=== PATIENT | female | born 1995 | race American Indian/Alaskan Native ===

== ENCOUNTER 2016-11-01 10:26 | Emergency (ER) | payer SELFPAY ==
[2016-11-01 11:30] VITALS: BP 131/85
--- NOTE | 2016-11-01 14:59 | Emergency Department Report ---
HPI - General Chief Complaint: Medical Clearance Time Seen by Provider: 11/01/16 14:37 - HPI HPI: 21-year-old female Presents today post choking on a cough Earlier this morning. Patient states that she was at work at the time and a coworker performed the Heimlich on patient which caused coughed up to come up. Patient states her work needs would be medically cleared. Denies fever, chills, nausea, vomiting, chest pain, shortness of breath, abdominal pain. Denies any medical complaints besides persistent cough post recovering from flu. Patient is currently following up with her primary care provider for this. ED Past Medical Hx - Past Medical History Hx Hypertension: Yes Hx Congestive Heart Failure: No Hx Diabetes: Yes (Borderline DM) Hx Deep Vein Thrombosis: No Hx Renal Disease: No Hx Sickle Cell Disease: No Hx Seizures: No Hx Asthma: Yes Hx COPD: No Hx Dementia: Yes (Borderline) Hx HIV: No - Surgical History Additional Surgical History: vaginal delivery - Social History Smoking Status: Current Every Day Smoker Substance Use Type: Alcohol - Medications Home Medications: Home Medications Medication Instructions Recorded Confirmed Last Taken Type Pnv with Ca,No.72/Iron/FA [Pnv 1 tab PO DAILY 08/13/15 08/13/15 08/12/15 09:00 History Plus Multivit Tab] 1 Promethazine /Codeine 5 ml PO Q6H PRN #100 ml 11/01/16 Unknown Rx [Phenergan/Codeine 6.25-10 mg/5 ml] ED Review of Systems ROS: Stated complaint: CHOKING/CP Other details as noted in HPI Constitutional: denies: chills, fever, malaise Eyes: denies: eye pain ENT: denies: ear pain, throat pain, congestion Respiratory: cough. denies: shortness of breath, wheezing Cardiovascular: denies: chest pain, palpitations Endocrine: no symptoms reported Gastrointestinal: denies: abdominal pain, nausea, vomiting Neurological: denies: headache, weakness Physical Exam - Physical Exam Vital Signs: Vital Signs 11/01/16 11:23 Temperature 98.4 F Pulse Rate 86 Respiratory 18 Rate Blood Pressure 131/85 O2 Sat by Pulse 100 Oximetry Physical Exam: GENERAL: The patient is well-developed and well-nourished. Patient is in NAD. HEAD: Normocephalic. Atraumatic. EYES: PERRL. NOSE: Normal nasal mucosa with no nasal discharge. THROAT: No erythema, swelling or exudates. NECK: Supple, nontender, without lymphadenopathy. CHEST/LUNGS: Clear to auscultation throughout. HEART/CARDIOVASCULAR: Regular rate and rhythm. No murmurs, rubs or gallops. ABDOMEN: Abdomen is soft, nontender. Bowel sounds normoactive. No guarding or rebound tenderness. EXTREMITIES: Peripheral pulses intact. Capillary refill less than 2 seconds. NEURO: Alert and oriented x 3. Normal gait. ED Course Vital Signs 11/01/16 11:23 Temperature 98.4 F Pulse Rate 86 Respiratory 18 Rate Blood Pressure 131/85 O2 Sat by Pulse 100 Oximetry ED Medical Decision Making - Lab Data Vital Signs 11/01/16 11:23 Temperature 98.4 F Pulse Rate 86 Respiratory 18 Rate Blood Pressure 131/85 O2 Sat by Pulse 100 Oximetry - Medical Decision Making 21-year-old female presents to the tibia medically cleared post choking on a cough drop. She has no medical complaints and her physical exam is unremarkable. Patient is in no acute distress at this time. She will be discharged home and is encouraged to follow up with a primary care provider. She will be sent home on promethazine/codeine and is encouraged to return to the emergency room for any worsening symptoms. Critical care attestation.: If time is entered above; I have spent that time in minutes in the direct care of this critically ill patient, excluding procedure time. ED Disposition Clinical Impression: Cough Disposition: DISCHARGED TO HOME OR SELFCARE Is pt being admited?: No Does the pt Need Aspirin: No Condition: Stable Instructions: Acute Cough (ED) Additional Instructions: Follow with primary care provider. Return to the emergency department if symptoms worsen. Prescriptions: Promethazine /Codeine [Phenergan/Codeine 6.25-10 mg/5 ml] 5 ml PO Q6H PRN #100 ml PRN Reason: cough Referrals: PRIMARY CARE, [Primary Care Provider] - 3-5 Days [facility] [Outside] - 3-5 Days Forms: Work/School Release Form(ED) Time of Disposition: 15:07
== END 2016-11-01 15:21 | disposition home or self-care (01) ==
LOC: ED 10:26
DX: R05 Cough (principal); I10 Essential (primary) hypertension; E11.9 Type 2 diabetes mellitus without complications; J45.909 Unspecified asthma, uncomplicated; F17.200 Nicotine dependence, unspecified, uncomplicated
CPT/HCPCS: 99282

== ENCOUNTER 2018-09-02 05:08 | Inpatient (IN) | payer MEDICAID ==
[2018-09-02] MEDS ORDERED: LACTATED RINGERS 1,000 ML ONE (07:04)
[2018-09-02] MEDS ORDERED: PFIZERPEN 5 MIL.UNITS in NACL 0.9% 50 ML IV ONE (07:35)
[2018-09-02] MEDS ORDERED: BRETHINE SUB-Q PRN (07:35)
[2018-09-02 07:50] LABS: Basophils % (Auto) 0.4 % (0.0-1.8); Eosinophils # (Auto) 0.1 K/mm3 (0.0-0.4); Eosinophils % (Auto) 0.6 % (0.0-4.3); Hematocrit 33.1 % (30.3-42.9); Hemoglobin 11.2 gm/dl (10.1-14.3); Lymphocytes # (Auto) 2.3 K/mm3 (1.2-5.4); Lymphocytes % (Auto) 22.3 % (13.4-35.0); Mean Corpuscular HGB Conc 34 % (30-34); Mean Corpuscular Volume 85 fl (79-97); Monocytes # (Auto) 1.1 K/mm3 (0.0-0.8); Monocytes % (Auto) 10.7 % (0.0-7.3); Platelet Count 227 K/mm3 (140-440); Red Blood Count 3.89 M/mm3 (3.65-5.03)
[2018-09-02] MEDS ORDERED: LACTATED RINGERS 1,000 ML IV SCH ×2 (08:00→12:00)
[2018-09-02] MEDS ORDERED: PITOCin/NS 20 UNIT/1000ML DRIP 20 UNITS/1,000 ML BAG IV SCH ×3 (08:00→15:00)
[2018-09-02 08:54] LABS: Alanine Aminotransferase 8 units/L (7-56); Albumin 3.7 g/dL (3.9-5); BUN/Creatinine Ratio 18; Blood Urea Nitrogen 7 mg/dL (7-17); Calcium 9.9 mg/dL (8.4-10.2); Hemolysis Index 34
[2018-09-02] MEDS: LACTATED RINGERS 1,000 ML IV SCH ×2 (09:00→18:36)
--- NOTE | 2018-09-02 09:03 | History and Physical Report ---
History of Present Illness Date of examination: 09/02/18 Date of admission: 09/02/18 07:55 Chief complaint: 23 year old presents to labor and delivery with complaint of contractions. History of present illness: 23 year old presents to L&D complaining of contractions since around 4:00 am today. Patient denies LOF or VB. Pt. reports active movement. Patient states she has been receiving care at [facility] and has also been seeing [facility]. No records are available here at the hospital today. records have been requested. US has been ordered to confirm gestational age. Patient states she has IDDM; she states she has had diabetes since childhood but has only been taking insulin for about the past year. Patient also has obesity and she reports a history of PCOS. Patient states that, other than obesity and diabetes requiring insulin, she has not had any complications during this . She states she had a normal vaginal 3 years ago. I was notified that patient was here at 07:08 AM; at that time, frequent brief variable FHR decelerations and a few late FHR decelerations were noted; normal FHR baseline and moderate variability were noted. IV hydration was given and patient was positioned in lateral position; FHR decelerations resolved. US and BPP with velocimetry was ordered. Past History Past Medical History: diabetes (IDDM), other (obesity) Past Surgical History: no surgical history [facility] History: herpes (on Valtrex suppression but patient admits to not taking the medication regularly; reports stinging and tingling feeling in genital area; lesion seen at introitus; herpes culture done; MD notified), other (PCOS) Family/Genetic History: diabetes, heart disease, hypertension Social history: single, lives with family, full code. denies: smoking, alcohol abuse, prescription drug abuse, IV drug use - Obstetrical History Expected Date of Delivery: 09/22/18 (per patient report; records have been requested) Actual Gestation: 37 Week(s) 1 Day(s) : 2 Medications and Allergies Allergies Allergy/AdvReac Type Severity Reaction Status Date / Time latex Allergy Rash Verified 09/02/18 05:40 Home Medications Medication Instructions Recorded Confirmed Last Taken Type NovoLOG Mix 70-30 Flexpen 15 units SQ BID 09/02/18 09/02/18 09/01/18 20:00 History valACYclovir [Valtrex] 1,000 mg PO DAILY 09/02/18 09/02/18 08/31/18 History Active Meds: Active Medications Ephedrine Sulfate (Ephedrine Sulfate) 10 mg IV Q2M PRN PRN Reason: Hypotension Lactated Ringer's (Lactated Ringers) 1,000 mls @ 125 mls/hr IV DIRECT DARIEN Oxytocin/Sodium Chloride (Pitocin/Ns 20 Unit/1000ml Drip) 20 units in 1,000 mls @ 125 mls/hr IV DIRECT DARIEN Penicillin G Potassium 2.5 mil (.units/ Sodium Chloride) 50 mls @ 100 mls/hr IV Q4HR DARIEN; Protocol Terbutaline Sulfate (Brethine) 0.25 mg SUB-Q ONCE PRN PRN Reason: Hyperstimulation/Hypertonicity Review of Systems All systems: negative (possible herpes outbreak of vulva/vagina; contractions since 04:00 today) - Vital Signs Vital signs: Vital Signs Temp Pulse Resp BP Pulse Ox 98.7 F 91 H 18 123/70 98 09/02/18 05:25 09/02/18 05:25 09/02/18 05:25 09/02/18 05:25 09/02/18 05:25 Temp Pulse Resp BP Pulse Ox 98.7 F 70 18 119/74 100 09/02/18 05:25 09/02/18 07:49 09/02/18 05:25 09/02/18 06:50 09/02/18 07:49 - Physical Exam Abdomen: Positive: normal appearance, soft. Negative: distention, tenderness, guarding, rigidity Genitourinary (Female): Positive: perineal/vulvar lesions (small linear lesion right side of introitus; tender to palpation; herpes virus culture done) Vagina: Positive: normal moisture (no leaking of fluid seen) Uterus: Positive: enlarged. Negative: tender Extremities: Positive: normal, edema (mild pedal edema). Negative: tenderness - Obstetrical FHR: category 2 (FHR with occasional brief variable deceleration; pt. had a few late appearing decelerations upon admission which have resolved) Uterine Contraction Monitor Mode: External Cervical Dilatation: 3.5 Cervical Effacement Percentage: 50 station: -3 Uterine Contraction Pattern: Irregular Uterine Contraction Intensity: Moderate Results Result Diagrams: 09/02/18 07:30 09/02/18 08:40 Abnormal lab results 09/02/18 09/02/18 09/02/18 Range/Units 05:51 07:30 08:40 [place] % (Auto) 10.7 H (0.0-7.3) % [place] # 1.1 H (0.0-0.8) K/mm3 Sodium 136 L (137-145) mmol/L Carbon Dioxide 20 L (22-30) mmol/L Creatinine 0.4 L (0.7-1.2) mg/dL Glucose 113 H (65-100) mg/dL POC Glucose 117 H (70-105) Alkaline Phosphatase 135 H (35-129) units/L Albumin 3.7 L (3.9-5) g/dL All other labs normal. Assessment and Plan A: at 37 weeks, 1 day gestation. No records available (records have been requested). Insulin dependent diabetes. Obesity. GBS positive per patient report. HSV 2 positive, noncompliant with Valtrex suppression, possible genital herpes outbreak. heart rate decelerations, not recurrent. P: Admit. Obtain records ( records have been requested). GBS prophylaxis. NPO. Continuous EFM. Herpes culture (done). IV hydration. Ultrasound. Blood glucose, hemoglobin A1C, CBC, CMP, type and screen. Per Dr. Camp's request, [facility] consult. Consulted with Dr. Camp regarding this patient and the above patient complaints and findings. Dr. Camp states to keep patient NPO, get [facility] consult, and she will come and see the patient. Called [facility] and informed them that Dr. Camp requests a consult.
[2018-09-02] MEDS ORDERED: VALTREX PO SCH ×2 (10:00)
--- NOTE | 2018-09-02 10:03 | Ultrasound Report ---
FINAL REPORT EXAM: US OB FOLLOW UP HISTORY: gestational age, zulay, placenta TECHNIQUE: Obstetrical ultrasound was performed. PRIORS: None. FINDINGS: position is cephalic. Placental location is posterior. Negative for placenta previa. Negative for placental abruption. Amniotic fluid volume is normal. The amniotic fluid index is 15.6 cm. cardiac activity is identified, measured at 149 beats per minute. Measurements: BPD: 8.6 cm-34 weeks 4 days +/-22 days HC: 32.7 cm-37 weeks 1 day +/-19 days AC: 33.3 cm-37 weeks 1 day +/-21 days FL: 6.97 cm-35 weeks 5 days +/-21 days HC/AC: 0.98 (0.92-1.05) Avg age by US: 36 weeks 1 day with corresponding ISABEL of 09/29/2018. Clinical age is 37 weeks 1 day with ISABEL of 09/22/2018. EFW: 2964 g +/-439 g. This is 40th percentile for clinical age of 37 weeks 1 day. Survey of anatomy: Not performed. IMPRESSION: There is a single live intrauterine just station. Clinical age is 37 weeks 1 day with ISABEL of 09/22/2018 . Growth is appropriate with estimated weight corresponding to the 40th percentile. Specifics a s above. Amniotic fluid volume normal with ZULAY of 15.6 cm. Posterior placenta without evidence of abruption or placenta previa.
--- NOTE | 2018-09-02 10:04 | Ultrasound Report ---
FINAL REPORT EXAM: US OB BPP WO NON-STRESS HISTORY: BPP TECHNIQUE: Sonographic biophysical profile performed PRIORS: None. FINDINGS: There is a single live intrauterine of approximately 37 weeks 1 day according to the provid ed LMP of 12/16/2018 and ISABEL of 09/22/2018. position is cephalic. The placenta is posterior. Amniotic fluid volume is normal with ZULAY of 15.6 cm. cardiac activity is measured at 149 bpm. biophysical profile: breathing movements: 2 Gross body movements: 2 tone: 2 Amniotic fluid volume: 2 Score: 8 out of 8. IMPRESSION: Normal biophysical profile scoring 8 out of 8
--- NOTE | 2018-09-02 10:22 | Event Note ---
Date: 09/02/18 records have been received now. The following noted on records: . LMP: 10/24/2017. EDC 09/22/2018 (based on first trimester ultrasound). History of GBS bacteriuria during . HSV 2 positive, was prescribed Valtrex during . Elevated AFP (+ OSB); patient was referred to [facility] during . Trichomonas (treated with Flagyl); test of cure done but no result on chart. Anemia; iron supplementation was prescribed during . labs: O+, antibody screen negative, pap smear negative, rubella immune, RPR nonreactive, hepatitis B surface antigen negative, HIV negative, HSV 2 positive, hemoglobin electrophoresis AA, GC negative, CT negative, GBS positive.
[2018-09-02] MEDS ORDERED: PFIZERPEN 2.5 MIL.UNITS in NACL 0.9% 50 ML IV SCH (11:30)
[2018-09-02] MEDS ORDERED: ANCEF/STERILE WATER 2 GM/20 ML 2 GM/20 ML SYRINGE IV NR ×2 (11:30→12:00)
[2018-09-02] MEDS ORDERED: REGLAN IV ONE (11:30)
--- NOTE | 2018-09-02 11:34 | Anesthesia Consultation ---
Anesthesia Consult and Med Hx Date of service: 09/02/18 (c section) - Airway Anesthetic Teeth Evaluation: Good ROM Head & Neck: Adequate Mental/Hyoid Distance: Adequate Mallampati Class: Class II Intubation Access Assessment: Good - Pulmonary Exam CTA: Yes - Cardiac Exam Cardiac Exam: RRR - Pre-Operative Health Status ASA Pre-Surgery Classification: ASA2, Emergency Proposed Anesthetic Plan: Spinal - Pre-Anesthesia Comment Pre-Anesthesia Comments: hx of type 1 DM BS 113 - Pulmonary Hx Smoking: No Hx Asthma: No COPD: No Hx Pneumonia: No - Cardiovascular System Hx Hypertension: No - Central Nervous System Hx Seizures: No Hx Psychiatric Problems: Yes ( depression) - Endocrine Hx Renal Disease: No Hx End Stage Renal Disease: No Hx Insulin Dependent Diabetes: Yes Hx Hypothyroidism: No Hx Hyperthyroidism: No - Hematic Hx Anemia: No Hx Sickle Cell Disease: No - Other Systems Hx Alcohol Use: No - Additional Comments Anesthesia Medical History Comments: consent for spinal and QLs for post op pain control labs reviewed
[2018-09-02] MEDS ORDERED: PHENERGAN PO PRN (11:35)
[2018-09-02] MEDS ORDERED: ZOFRAN IV PRN (11:35)
[2018-09-02] MEDS ORDERED: NARCAN 0.4 MG/1 ML IV PRN (11:35)
[2018-09-02] MEDS ORDERED: PHENERGAN PR PRN (11:35)
--- NOTE | 2018-09-02 11:35 | Anesthesia Day of Surgery ---
Anesthesia Day of Surgery - Day of Surgery Patient Examined: Yes Patient H&P Reviewed: Yes Patient is NPO: Yes Beta Blockers: No Cardiac Clearance: No Pulmonary Clearance: No Mian's Test: N/A (emergency section)
--- NOTE | 2018-09-02 11:45 | Progress Note ---
Subjective Date of service: 09/02/18 Principal diagnosis: DM, Labor HSV2 Interval history: the patietn is presents at 37 weeks 1 day with labor latent, decels non recurrent, DM2 on insulin and HSV2 outbreak per report from primary OB RN. I heladio went to see the patient as she is being prepared to have CS, I would also rec CS for the patient at this time as there is concern for maternal well being. Please treat HSV outbreaka nd and make peds aware of active outbreaj, Valtrex 1000 BID for 7-10 days. should not contact the HSV, please call peds. After she is delivered would 1/2 insulin dose and monitor response per standard protocol for DM2 patients. If there are any concerns please call myself, we will sign off on patient. Objective - Constitutional Vitals: Vital Signs - 12hr 09/02/18 09/02/18 09/02/18 05:25 05:31 05:32 Temperature 98.7 F Pulse Rate 91 H 86 Respiratory 18 Rate Blood Pressure 123/70 Blood Pressure 123/70 [Left] O2 Sat by Pulse 98 97 Oximetry 09/02/18 09/02/18 09/02/18 05:36 05:41 05:46 Temperature Pulse Rate 91 H 84 92 H Respiratory Rate Blood Pressure Blood Pressure [Left] O2 Sat by Pulse 98 97 99 Oximetry 09/02/18 09/02/18 09/02/18 05:50 05:51 05:56 Temperature Pulse Rate 82 79 85 Respiratory Rate Blood Pressure 117/73 Blood Pressure [Left] O2 Sat by Pulse 99 97 Oximetry 09/02/18 09/02/18 09/02/18 06:01 06:05 06:06 Temperature Pulse Rate 84 77 80 Respiratory Rate Blood Pressure 117/80 Blood Pressure [Left] O2 Sat by Pulse 100 100 Oximetry 09/02/18 09/02/18 09/02/18 06:11 06:16 06:19 Temperature Pulse Rate 73 75 71 Respiratory Rate Blood Pressure 117/79 Blood Pressure [Left] O2 Sat by Pulse 99 99 Oximetry 09/02/18 09/02/18 09/02/18 06:21 06:26 06:31 Temperature Pulse Rate 71 77 66 Respiratory Rate Blood Pressure Blood Pressure [Left] O2 Sat by Pulse 98 98 98 Oximetry 09/02/18 09/02/18 09/02/18 06:36 06:41 06:46 Temperature Pulse Rate 76 73 78 Respiratory Rate Blood Pressure Blood Pressure [Left] O2 Sat by Pulse 98 99 98 Oximetry 09/02/18 09/02/18 09/02/18 06:50 06:51 06:56 Temperature Pulse Rate 76 69 Respiratory Rate Blood Pressure 119/74 Blood Pressure [Left] O2 Sat by Pulse 100 98 Oximetry 09/02/18 09/02/18 09/02/18 07:01 07:06 07:11 Temperature Pulse Rate 70 77 82 Respiratory Rate Blood Pressure Blood Pressure [Left] O2 Sat by Pulse 98 98 98 Oximetry 09/02/18 09/02/18 09/02/18 07:16 07:18 07:29 Temperature Pulse Rate 90 82 67 Respiratory Rate Blood Pressure Blood Pressure [Left] O2 Sat by Pulse 99 87 99 Oximetry 09/02/18 09/02/18 09/02/18 07:34 07:39 07:44 Temperature Pulse Rate 68 85 86 Respiratory Rate Blood Pressure Blood Pressure [Left] O2 Sat by Pulse 99 100 99 Oximetry 09/02/18 09/02/18 09/02/18 07:49 09:43 09:44 Temperature Pulse Rate 70 79 81 Respiratory Rate Blood Pressure 112/73 Blood Pressure [Left] O2 Sat by Pulse 100 99 Oximetry 09/02/18 09/02/18 10:12 10:17 Temperature 97.2 F L Pulse Rate 74 78 Respiratory 16 Rate Blood Pressure 111/56 Blood Pressure 111/56 [Left] O2 Sat by Pulse 99 Oximetry - Labs CBC & Chem 7: 09/02/18 07:30 09/02/18 08:40 Labs: Abnormal lab results 09/02/18 09/02/18 09/02/18 Range/Units 05:51 07:30 08:40 [place] % (Auto) 10.7 H (0.0-7.3) % [place] # 1.1 H (0.0-0.8) K/mm3 Sodium (137-145) mmol/L Carbon Dioxide (22-30) mmol/L Creatinine (0.7-1.2) mg/dL Glucose (65-100) mg/dL POC Glucose 117 H (70-105) Hemoglobin A1c 8.0 H (4-6) % Alkaline Phosphatase (35-129) units/L Albumin (3.9-5) g/dL 09/02/18 Range/Units 08:40 [place] % (Auto) (0.0-7.3) % [place] # (0.0-0.8) K/mm3 Sodium 136 L (137-145) mmol/L Carbon Dioxide 20 L (22-30) mmol/L Creatinine 0.4 L (0.7-1.2) mg/dL Glucose 113 H (65-100) mg/dL POC Glucose (70-105) Hemoglobin A1c (4-6) % Alkaline Phosphatase 135 H (35-129) units/L Albumin 3.7 L (3.9-5) g/dL Medications & Allergies - Medications Allergies/Adverse Reactions: Allergies latex Allergy (Verified 09/02/18 05:40) Rash Home Medications: Home Medications Medication Instructions Recorded Confirmed Last Taken Type NovoLOG Mix 70-30 Flexpen 15 units SQ BID 09/02/18 09/02/18 09/01/18 20:00 History valACYclovir [Valtrex] 1,000 mg PO DAILY 09/02/18 09/02/18 08/31/18 History Active Medications: Generic Name Dose Route Start Last Admin Trade Name Freq PRN Reason Stop Dose Admin Citric Acid/Sodium Citrate 30 ml 09/02/18 12:00 Bicitra PO 09/02/18 12:01 ONCE ONE Ephedrine Sulfate 10 mg 09/02/18 07:35 Ephedrine Sulfate IV Q2M PRN Hypotension Famotidine 20 mg 09/02/18 12:00 Pepcid IV 09/02/18 12:01 ONCE ONE Lactated Ringer's 1,000 mls @ 125 mls/hr 09/02/18 08:00 09/02/18 09:00 Lactated Ringers IV 125 mls/hr DIRECT DARIEN Administration Oxytocin/Sodium Chloride 20 units in 1,000 mls @ 125 mls/hr 09/02/18 08:00 Pitocin/Ns 20 Unit/1000ml Drip IV DIRECT DARIEN Penicillin G Potassium 2.5 mil 50 mls @ 100 mls/hr 09/02/18 11:30 .units/ Sodium Chloride IV Q4HR DARIEN Protocol Lactated Ringer's 1,000 mls @ 2,250 mls/hr 09/02/18 12:00 Lactated Ringers IV 09/03/18 12:27 PREOP DARIEN Oxytocin/Sodium Chloride 20 units in 1,000 mls @ 0 mls/hr 09/02/18 12:00 Pitocin/Ns 20 Unit/1000ml Drip IV TITR DARIEN As Directed Cefazolin Sodium 2 gm in 20 mls @ 80 mls/hr 09/02/18 11:30 Ancef/Sterile Water 2 Gm/20 Ml IV 09/02/18 23:59 PREOP NR Protocol Fentanyl/Bupivacaine/Sodium Chlor 200 mcg in 100 mls @ 8 mls/hr 09/02/18 12:00 Fentanyl-Bupiv 2 Mcg/Ml-0.125% EPIDURAL TITRATE [facility] Protocol Naloxone HCl 0.2 mg 09/02/18 11:35 Narcan 0.4 Mg/1 Ml IV Q2MIN PRN Res Rate </= 8 or 02 SAT < 92% Ondansetron HCl 4 mg 09/02/18 11:35 Zofran IV Q8H PRN Nausea And Vomiting Promethazine HCl 25 mg 09/02/18 11:35 Phenergan PO Q6H PRN Nausea And Vomiting Promethazine HCl 25 mg 09/02/18 11:35 Phenergan [place] Q6H PRN Nausea And Vomiting Sodium Chloride 10 ml 09/02/18 12:00 Sodium Chloride Flush Syringe 10 Ml IV PRN NR Terbutaline Sulfate 0.25 mg 09/02/18 07:35 Brethine SUB-Q ONCE PRN Hyperstimulation/Hypertonicity Valacyclovir HCl 1,000 mg 09/02/18 10:00 Valtrex PO QDAY [facility]
[2018-09-02] MEDS ORDERED: PEPCID IV ONE (12:00)
[2018-09-02] MEDS ORDERED: BICITRA PO ONE (12:00)
[2018-09-02] MEDS ORDERED: fentaNYL-BUPIV 2 MCG/ML-0.125% 200 MCG/100 ML BAG EPIDURAL SCH (12:00)
[2018-09-02] MEDS ORDERED: SODIUM CHLORIDE FLUSH SYRINGE 10 ML IV NR (12:00)
[2018-09-02] MEDS ORDERED: WATER FOR IRRIG STERILE IR ONE (12:20)
[2018-09-02] MEDS ORDERED: NACL 0.9% IR ONE (12:20)
[2018-09-02] MEDS ORDERED: MARCAINE 0.5% INFILTRATI ONE (14:00)
[2018-09-02] MEDS ORDERED: DECADRON ONE (14:00)
[2018-09-02] MEDS ORDERED: D50W (25GM) Syringe IV PRN (14:13)
[2018-09-02] MEDS ORDERED: MYLICON PO PRN (14:20)
[2018-09-02] MEDS ORDERED: MILK OF MAGNESIA PO PRN (14:20)
[2018-09-02] MEDS ORDERED: TUCKS PAD TP PRN (14:20)
[2018-09-02] MEDS ORDERED: LANSINOH TP PRN (14:20)
--- NOTE | 2018-09-02 14:41 | Operative Report ---
Operative Report Operative Report: PREOP Diagnosis 1. 37 1/7 weeks gestation 2. Uncontrolled Insulin-Dependent Diabetes Mellitus Type I 3. Category II heart tracings 4. Non-compliance with care 5. Active HSV2 genital outbreak Postop Diagnosis 1. 37 1/7 weeks gestation 2. Uncontrolled Insulin-Dependent Diabetes Mellitus Type I 3. Category II heart tracings 4. Non-compliance with care 5. Active HSV2 genital outbreak Procedure: Primary low-transverse section Findings 1. Viable female infant in the vertex position, weighing 6lb 7oz, 2934g APGARS 8 at 1 min, 9 at 5 min 2. Normal uterus, bilateral ovaries and tubes Surgeon 1. Melissa Camp MD Anesthesia: 1. Epidural I/O: EBL: 400ml UOP: 10ml, clear urine IVF 1100ml LR Specimens removed: 1. Placenta Complications: none Disposition: Patient taken to recovery room in stable condition INDICATIONS: The patient is a 23yo at 37 1/7weeks that presented to L&D complaining of contractions. She was found to have Category II heart tracings. After physical exam a vulvar lesion suspicious of HSV2 was noted. She admitted to being non-compliant on her HSV2 suppression medications and admits to frequent and recent herpes outbreaks. The the decision was made to proceed to delivery due to uncontrolled, non-complaint gestational diabetes with Category II heart tracings. The mode of delivery was due to the active herpes outbreak. The patient was consented and the risks including but not limited to bleeding, infections, injury to surrounding organs, potential injury to mother/ were discussed. All questions were answered and informed consent signed. PROCEDURE: The patient was taken to the OR in stable condition. Adequate anesthesia was achieved with epidural anesthesia. A marley catheter was placed. She wore SCDs for DVT prophylaxis. And received Ancef for infection prophylaxis. heart tones were confirmed at 138bpm. The patient was prepped and draped in the usual fashion and an additional time out was done. A Pfannestiel incision was made with the MegaAce device. The fascia was incised and the incision extended laterally. The superior and inferior aspect of the rectus muscle was dissected off of the fascia. Entry into the peritoneum was achieved. The incision was extended caudally. A bladder blade was placed. A low-transverse incision made made in the uterus and extended laterally. membranes were ruptured and noted to be clear. The head was brought to the hysterotomy and mouth bulb suctioned. The body was delivered. The cord was clamped x 2, cut and infant handed off to awaiting managing attorney staff. The placenta was delivered intact a nd 20 units of IV Pitocin were added to LR fluids. The uterus was exteriorized and cleaned of all clots. The uterus was repaired with 0-Vicryl in a running, locked stitch and an imbricating layer of the same suture was used. Surgicel was placed at the left aspect of the hysterotomy. The peritoneum and rectus was approximated with 2-0 Vicryl. The fascia was closed with 0 Vicryl. The subcutaneous layer was reapproximated with 2-0 Vicryl and skin was closed with 4-0 Vicryl The patient tolerated the procedure well. All counts were correct x 3. Urine was noted to be clear at close of case. I was present and scrubbed for the entire procedure. The patient was taken to the recovery room in stable condition.
--- NOTE | 2018-09-02 14:44 | Ultrasound Report ---
FINAL REPORT PROCEDURE: US OB VELOCIMETRY UMBILCAL ART TECHNIQUE: Pulse Doppler imaging waist utilized to evaluate the umbilical artery. Amniotic fluid ind ex is also calculated. HISTORY: deceleration COMPARISON: None FINDINGS: Amniotic fluid index is normal measuring 15.6 centimeters. Subjectively the amount of amniotic fluid appears normal. The systolic to diastolic ratio is 2.42. Good diastolic flow is visualized. Resistive index is normal measuring 0.59. IMPRESSION: Subjectively and by amniotic fluid index the amount of amniotic fluid appears normal. Doppler evaluation of the umbilical artery appear normal at this time.
[2018-09-02] MEDS ORDERED: SODIUM CHLORIDE FLUSH SYRINGE 10 ML IV SCH (15:00)
[2018-09-02] MEDS: PERCOCET 5/325 PO PRN (18:35)
[2018-09-02 22:50] LABS: Amphetamine Screen,Urine PRESUMPTIVE NEGATIVE; Benzodiazepines Screen,Urine PRESUMPTIVE NEGATIVE; Cannabinoid Screen,Urine PRESUMPTIVE NEGATIVE; Cocaine Screen,Urine PRESUMPTIVE NEGATIVE; Methadone Screen,Urine PRESUMPTIVE NEGATIVE; Opiate Screen,Urine PRESUMPTIVE NEGATIVE
[2018-09-03] MEDS: VALTREX PO SCH ×2 (00:20→20:18)
[2018-09-03] MEDS: HumuLIN R SUB-Q SCH ×2 (00:23→05:45)
[2018-09-03] MEDS: IBUPROFEN PO PRN ×3 (04:48→18:29)
[2018-09-03] MEDS: PERCOCET 5/325 PO PRN ×3 (04:48→18:30)
[2018-09-03 05:34] LABS: Hematocrit 33.2 % (30.3-42.9); Hemoglobin 10.9 gm/dl (10.1-14.3)
[2018-09-03] MEDS: FEOSOL PO SCH (11:05)
--- NOTE | 2018-09-03 12:25 | Progress Note ---
Assessment and Plan A: /postop day 1 S/P primary low transverse section. Anemia. P: Supplement with iron. Encouraged ambulation. Subjective - Subjective Date of service: 09/03/18 Principal diagnosis: /postop day 1 S/P primary low transverse section Interval history: /postop day 1 S/P primary low transverse section. Patient is doing well. She reports a small amount of lochia. Patient is voiding without difficulty and passing gas. She is ambulating well and tolerating a regular diet. Patient denies headache, chest pain, cough, shortness of breath, abdominal pain, leg pain, dizziness, heavy bleeding, or nausea/vomiting. Patient reports: appetite normal, voiding normally, pain well controlled, flatus, ambulating normally, no dizzy ambulation, no nauseated [place]: doing well Objective - Vital Signs Latest vital signs: Vital Signs Temp Pulse Resp BP BP Pulse Ox 09/03/18 07:47 98.1 F 56 L 16 112/71 99 09/03/18 04:56 97.9 F 55 L 18 130/66 09/03/18 01:10 98.1 F 58 L 16 123/66 09/02/18 21:10 98.4 F 80 18 118/58 09/02/18 15:27 97.4 F L 56 L 18 100 09/02/18 14:55 97.8 F 62 14 133/75 100 09/02/18 14:50 64 14 138/65 100 09/02/18 14:35 67 15 123/63 100 09/02/18 14:20 67 15 117/63 100 09/02/18 14:05 57 L 14 111/61 100 09/02/18 14:00 52 L 14 114/65 100 09/02/18 13:55 55 L 14 105/58 100 09/02/18 13:52 97.6 F 53 L 14 101/51 100 Intake and Output 09/02/18 09/03/18 09/03/18 23:59 07:59 15:59 Intake Total 1400 480 360 Output Total 900 2300 Balance 500 -1820 360 Intake: IV 1000 Lactated Ringers 1,000 ml 1000 @ 125 mls/hr IV DIRECT DARIEN Rx#:[id number] Oral 360 Intake, Free Water 400 480 Output: Urine 900 2300 Indwelling Catheter 900 1600 Void 700 Other: Total, Intake Amount 360 Total, Output Amount 900 700 # Voids Void 1 1 - Exam Cardiovascular: Present: Regular rate, Normal S1, Normal S2 Lungs: Present: Clear to auscultation Abdomen: Present: normal appearance, soft, normal bowel sounds. Absent: distention, tenderness, guarding, rigidity Uterus: Present: normal, firm, fundal height below umbilicus. Absent: bogginess, tenderness Extremities: Present: normal. Absent: tenderness, edema Incision: Present: normal, dry, intact, dressed - Labs Labs: Abnormal lab results 09/02/18 09/03/18 09/03/18 Range/Units 18:48 00:21 05:55 POC Glucose 114 H 183 H 134 H (70-105)
[2018-09-04] MEDS: HumuLIN R SUB-Q SCH ×2 (00:01→06:41)
[2018-09-04] MEDS: VALTREX PO SCH ×3 (06:57→22:16)
[2018-09-04] MEDS: IBUPROFEN PO PRN ×3 (06:59→22:17)
[2018-09-04] MEDS: PERCOCET 5/325 PO PRN ×3 (07:00→22:16)
--- NOTE | 2018-09-04 09:38 | Progress Note ---
Assessment and Plan - Patient Problems (1) S/P primary low transverse Current Visit: Yes Status: Acute Plan to address problem: POD 2 - stable Continue routine postop orders Ambulation encouraged, as tolerated Abdominal binder prn ordered Discharge to home 09/05/18 Follow up at [facility] on 09/08/18 to review blood glucose log (2) Insulin dependent diabetes mellitus Current Visit: Yes Status: Acute Plan to address problem: Blood glucose stable (last blood glucose 82) Continue accuchecks/sliding scale insulin, as directed Patient instructed to continue checking her blood sugars at home 4x/d and follow up at [facility] on 09/08/18 to review her blood glucose log and plan of care. Subjective - Subjective Date of service: 09/04/18 Principal diagnosis: POD #2; s/p Primary Low Transverse Section Patient reports: appetite normal, voiding normally, pain well controlled, flatus, ambulating normally, no dizzy ambulation, no bowel movement [place]: doing well, other (breast and bottle feeding) Objective - Vital Signs Latest vital signs: Vital Signs Temp Pulse Resp BP BP Pulse Ox 09/04/18 07:30 98.5 F 63 18 120/73 98 09/04/18 07:00 18 09/04/18 06:59 18 09/03/18 23:34 98.0 F 70 18 106/52 98 09/03/18 15:57 97.3 F L 75 20 118/68 99 09/03/18 12:25 97.8 F 73 16 111/67 99 Intake and Output 09/03/18 09/04/18 09/04/18 23:59 07:59 15:59 Intake Total 200 360 Output Total 500 Balance -300 360 Intake: Oral 200 Intake, Free Water 360 Output: Urine 500 Void 500 Other: Total, Intake Amount 200 Total, Output Amount 500 # Voids Void 2 - Exam Cardiovascular: Present: Regular rate Abdomen: Present: normal appearance, soft Vulva: both: normal Uterus: Present: normal, firm, fundal height below umbilicus Extremities: Present: normal Incision: Present: normal, dry, intact, other (steri strips in place) Comments: scant lochia - Labs Labs: Abnormal lab results 09/03/18 Range/Units 12:28 POC Glucose 106 H (70-105)
[2018-09-04] MEDS: FEOSOL PO SCH (09:46)
--- NOTE | 2018-09-04 09:52 | Discharge Summary ---
Providers - Providers Date of Admission: 09/02/18 07:55 Date of discharge: 09/05/18 Attending physician: SANTA FAJARDO MD 09/02/18 09:42 Consult to Physician [CONS] Stat Comment: Consulting Provider: DAYAMI MORELAND Physician Instructions: Reason For Exam: IDDM Primary care physician: SANTA FAJARDO MD Hospitalization Reason for admission: IUP at term Delivery: Procedure: primary low transverse Episiotomy: none Laceration: none Incision: normal, dry, intact, other (steri strips in place) Other procedures: none complications: none Discharge diagnosis: IUP at term delivered baby: female Hospital course: Uncomplicated Condition at discharge: Stable Disposition: DC-01 TO HOME OR SELFCARE - Discharge Diagnoses (1) S/P primary low transverse Status: Acute (2) Insulin dependent diabetes mellitus Status: Acute Comment: Patient instructed to stop home insulin therapy but continue checking her blood sugars at home 4x/d and follow up at [facility] on 09/08/18 to review her blood glucose log and plan of care. Plan - Discharge Medications Prescriptions: Ferrous Sulfate [Feosol 325 MG tab] 325 mg PO BID 30 Days #60 tablet Ibuprofen 800 mg PO Q6H PRN 10 Days #30 tablet MDD 3200mg PRN Reason: Pain, Moderate (4-6) oxyCODONE /ACETAMINOPHEN [Percocet 5/325] 1 tab PO Q4HR PRN 14 Days #30 tab PRN Reason: Pain , Severe (7-10) - Provider Discharge Summary Activity: routine, no sex for 6 weeks, no heavy lifting 4 weeks, no strenuous exercise Diet: routine Instructions: routine Additional instructions: [] Smoking cessation referral if applicable(refer to patient education folder for contact #) [] Refer to [facility] Booklet Call your doctor immediately for: * Fever > 100.5 * Heavy vaginal bleeding ( >1 pad per hour) * Severe persistent headache * Shortness of breath * Reddened, hot, painful area to leg or breast * Drainage or odor from incision. * Keep incision clean and dry at all times and follow doctor's instructions regarding bathing/showering - Follow up plan Follow up: SANTA FAJARDO MD [Primary Care Provider] - 09/08/18 (Patient instructed to stop home insulin therapy but continue checking her blood sugars at home 4x/d and follow up at [facility] on 09/08/18 to review her blood glucose log and plan of care.)
[2018-09-04] MEDS ORDERED: FLAGYL PO ONE (14:00)
[2018-09-05] MEDS: HumuLIN R SUB-Q SCH ×2 (05:09→05:50)
[2018-09-05] MEDS: FEOSOL PO SCH (09:27)
[2018-09-05] MEDS: IBUPROFEN PO PRN (09:27)
[2018-09-05] MEDS: VALTREX PO SCH (09:27)
[2018-09-05] MEDS: PERCOCET 5/325 PO PRN (09:28)
[2018-09-05 13:39] VITALS: BP 118/70
== END 2018-09-05 14:35 | disposition home or self-care (01) | DRG 765 ==
LOC: TRG 05:08 → LD 07:55 → OB 15:37
PROVIDERS: ADMIT Obstetrics & Gynecology; ATTEND Obstetrics & Gynecology
PROC: 10D00Z1 Extraction of Products of Conception, Low, Open Approach (ICD-10-PCS; principal; 2018-09-02)
DX: O24.02 Pre-existing type 1 diabetes mellitus, in childbirth (principal); O98.32 Other infections with a predominantly sexual mode of transmission complicating childbirth; O99.214 Obesity complicating childbirth; O76 Abnormality in fetal heart rate and rhythm complicating labor and delivery; O99.824 Streptococcus B carrier state complicating childbirth; O99.02 Anemia complicating childbirth; D64.9 Anemia, unspecified; A60.00 Herpesviral infection of urogenital system, unspecified; E10.9 Type 1 diabetes mellitus without complications; E66.9 Obesity, unspecified; Z3A.37 37 weeks gestation of pregnancy; Z37.0 Single live birth; Z91.040 Latex allergy status
CPT/HCPCS: 36415; 76816; 76819; 76820; 80053; 80307; 82962; 83036; 85014; 85018; 85025; 86592; 86850; 86900; 86901; 87255; 88307; G0378; J0690; J0735; J1100; J2540; J2590; J2765; J7120

== ENCOUNTER 2021-05-05 12:25 | Inpatient (IN) | payer MEDICAID ==
[2021-05-05] MEDS ORDERED: ACETAMINOPHEN 325 MG TAB PO PRN (12:57)
--- NOTE | 2021-05-05 13:46 | History and Physical Report ---
History of Present Illness Date of examination: 05/05/21 Date of admission: 05/05/21 13:08 Chief complaint: uncontrolled dm in . History of present illness: Patient is a 25-year-old single Afro-Burmese female 3 para 2-0-0-2. As menstrual period 01/22/2021 EDC 11/14/2020 she is approximately 13 weeks at this time. She has poor diabetic control. She has been diabetic since she was a child. She is taking insulin however control is not good. She also has a history of high cholesterol. The patient was admitted for [facility] for diabetic control. 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.), other (gastric paresis) Past Surgical History: no surgical history Family/Genetic History: diabetes, hypertension Social history: single - Obstetrical History Expected Date of Delivery: 11/14/21 Actual Gestation: 12 Week(s) 3 Day(s) : 3 Para: 2 Hx # Term Pregnancies: 2 Number of Pregnancies: 0 Spontaneous Abortions: 0 Induced : 0 Medications and Allergies Allergies Allergy/AdvReac Type Severity Reaction Status Date / Time latex Allergy Rash Verified 09/02/18 05:40 Home Medications Medication Instructions Recorded Confirmed Last Taken Type Ferrous Sulfate [Feosol 325 MG tab] 325 mg PO BID 30 Days #60 tablet 09/02/18 Unknown Rx Ibuprofen [Ibuprofen 800] 800 mg PO Q6H PRN 10 Days #30 09/02/18 Unknown Rx tablet MDD 3200mg NovoLOG Mix 70-30 Flexpen 15 units SQ BID 09/02/18 09/02/18 09/01/18 20:00 History oxyCODONE /ACETAMINOPHEN [Percocet 1 tab PO Q4HR PRN 14 Days #30 tab 09/02/18 Unknown Rx 5/325] valACYclovir [Valtrex] 1,000 mg PO DAILY 09/02/18 09/02/18 08/31/18 History Active Meds: Active Medications Acetaminophen (Acetaminophen 325 Mg Tab) 650 mg PO Q4H PRN PRN Reason: Pain MILD(1-3)/Fever >100.5/COFFEY Review of Systems All systems: negative - Physical Exam Breasts: Cardiovascular: Regular rate, Normal S1, Normal S2 Abdomen: Positive: normal appearance, soft, normal bowel sounds. Negative: distention, tenderness Vulva: both: normal Vagina: Positive: normal moisture. Negative: discharge Cervix: Negative: lesion, discharge Uterus: Positive: normal size, enlarged (12 weeks), normal contour Adnexa: both: normal Anus/Rectum: Positive: normal perianal skin, heme negative. Negative: rectal mass, hemorrhoids Extremities: Deep Tendon Reflex Grade: Normal +2 - Obstetrical FHR: auscultation normal Results All other labs normal. Assessment and Plan Poorly controlled diabetes since childhood. We will get a endocrinology consult better control her Procrit insulin regimen
[2021-05-05] MEDS ORDERED: DEXTROSE 50% IN WATER (25GM) 50 ML SYRINGE IV PRN (15:00)
--- NOTE | 2021-05-05 15:11 | Consultation ---
History of Present Illness - Reason for Consult Consult date: 05/05/21 Diabetes Requesting physician: ROLAND WEINSTEIN - History of Present Illness 25 YO Female at 13 weeks gestation with DM, HTN. Consult placed by Dr. Weinstein for medical management. No reported nursing events. Patient resting comfortably in bed. Patient has fever, chills, chest pain, palpitation, skin rash, recent ill contacts. Past History Past Medical History: diabetes, hypertension Past Surgical History: No surgical history, Other (reviewed) Social history: single Family history: diabetes, hypertension Medications and Allergies Allergies Allergy/AdvReac Type Severity Reaction Status Date / Time latex Allergy Rash Verified 09/02/18 05:40 nickel Allergy Unknown Unverified 05/05/21 15:02 Home Medications Medication Instructions Recorded Confirmed Last Taken Type Ferrous Sulfate [Feosol 325 MG tab] 325 mg PO BID 30 Days #60 tablet 09/02/18 Unknown Rx Ibuprofen [Ibuprofen 800] 800 mg PO Q6H PRN 10 Days #30 09/02/18 Unknown Rx tablet MDD 3200mg NovoLOG Mix 70-30 Flexpen 15 units SQ BID 09/02/18 09/02/18 09/01/18 20:00 History oxyCODONE /ACETAMINOPHEN [Percocet 1 tab PO Q4HR PRN 14 Days #30 tab 09/02/18 Unknown Rx 5/325] valACYclovir [Valtrex] 1,000 mg PO DAILY 09/02/18 09/02/18 08/31/18 History Insulin NPH, Human [NovoLIN N] 10 unit SQ HS 30 Days #10 ml 05/08/21 Unknown Rx Insulin NPH, Human [NovoLIN N] 26 unit SQ Q8AM 30 Days #10 ml 05/08/21 Unknown Rx Insulin Regular, Human [HumuLIN R] 10 unit SQ QPM 30 Days #100 units 05/08/21 Unknown Rx Insulin Regular, Human [HumuLIN R] 14 unit SUB-Q Q8AM 30 Days #100 05/08/21 Unknown Rx units Active Meds: Active Medications Acetaminophen (Acetaminophen 325 Mg Tab) 650 mg PO Q4H PRN PRN Reason: Pain MILD(1-3)/Fever >100.5/COFFEY Dextrose (Dextrose 50% In Water (25gm) 50 Ml Syringe) 50 ml IV Q30MIN PRN; Protocol PRN Reason: Hypoglycemia Insulin Human Lispro (Insulin Lispro 100 Unit/Ml) 0 unit SUB-Q ACHS DARIEN; Protocol Review of Systems Constitutional: no weight loss, no weight gain, no fever, no chills Ears, nose, mouth and throat: no ear pain, no tinnitis, no nose pain Breasts: no change in shape, no mass Cardiovascular: no chest pain, no orthopnea, no palpitations, no rapid/irregular heart beat Respiratory: no cough, no cough with sputum, no excessive sputum, no hemoptysis Gastrointestinal: no abdominal pain, no nausea, no vomiting, no diarrhea Genitourinary Female: no pelvic pain, no flank pain, no dysuria, no urinary frequency, no urgency Rectal: no pain, no incontinence, no bleeding Musculoskeletal: no neck stiffness, no neck pain, no low back pain, no shooting leg pain Integumentary: no rash, no pruritis, no wounds, no jaundice Neurological: no transient paralysis, no paralysis, no numbness, no tingling Psychiatric: no anxiety, no memory loss, no sleep disturbances, no insomnia, no change in libido Endocrine: no cold intolerance, no polyphagia, no polydipsia, no polyuria, no nocturia Hematologic/Lymphatic: no easy bruising Allergic/Immunologic: no urticaria, no allergic rhinitis Exam - Constitutional Vitals: Temp Pulse Resp BP Pulse Ox 98.7 F 77 20 102/61 100 05/05/21 14:00 05/05/21 14:00 05/05/21 14:18 05/05/21 14:00 05/05/21 14:12 General appearance: Present: no acute distress - EENT Eyes: Present: PERRL ENT: hearing intact, clear oral mucosa - Neck Neck: Present: supple, normal ROM - Respiratory Respiratory effort: normal Respiratory: bilateral: CTA - Cardiovascular Heart Sounds: Present: S1 & S2. Absent: rub, click - Extremities Extremities: pulses symmetrical, No edema Peripheral Pulses: within normal limits - Abdominal General gastrointestinal: Present: soft, non-tender, non-distended, normal bowel sounds Female genitourinary: Present: normal - Integumentary Integumentary: Present: clear, warm, dry - Musculoskeletal Musculoskeletal: gait normal, strength equal bilaterally - Psychiatric Psychiatric: appropriate mood/affect, intact judgment & insight - Neurologic Neurologic: CNII-XII intact, moves all extremities Results - Labs CBC & Chem 7: 05/05/21 15:08 Labs: Abnormal lab results 05/05/21 Range/Units 14:53 POC Glucose 183 H (70-105) mg/dL Assessment and Plan - Patient Problems (1) HTN (hypertension) Status: Acute Qualifiers: Hypertension type: primary hypertension Qualified Code(s): I10 - Essential (primary) hypertension Plan to address problem: Monitor BP q shift, Pt currently normtensive. (2) Diabetes Status: Acute Plan to address problem: Consistent carbohydrate diet, accu check, insulin protocol,
[2021-05-05] MEDS: INSULIN LISPRO 100 UNIT/ML SUB-Q SCH ×3 (15:18→22:34)
[2021-05-05 16:40] LABS: Alanine Aminotransferase 9 units/L (7-56); Albumin 3.7 g/dL (3.9-5); Blood Urea Nitrogen 9 mg/dL (7-17); Calcium 9.3 mg/dL (8.4-10.2); Hemolysis Index 1
[2021-05-05 16:45] LABS: BUN/Creatinine Ratio 23
[2021-05-05] MEDS: FERROUS SULFATE 325 MG TAB PO SCH (22:18)
[2021-05-06] MEDS: INSULIN LISPRO 100 UNIT/ML SUB-Q SCH ×3 (09:13→18:01)
[2021-05-06] MEDS: FERROUS SULFATE 325 MG TAB PO SCH ×2 (09:18→21:08)
--- NOTE | 2021-05-06 09:24 | Progress Note ---
Assessment and Plan Poorly controlled diabetes since childhood. We will get a endocrinology consult better control her Procrit insulin regimen.BLOOD SUGARS ARE BETTER BUT NOT CONTROLLED TODAY. Subjective Date of service: 05/06/21 Principal diagnosis: 13 wk iup , DM WITH POOR CONTROL Interval history: SEE H&P. Objective - Constitutional Vitals: Vital Signs - 12hr 05/06/21 05/06/21 05/06/21 00:14 04:45 08:01 Temperature 98.0 F 98.1 F 97.9 F Pulse Rate 66 75 72 Respiratory 20 18 18 Rate Blood Pressure 94/49 109/71 120/67 O2 Sat by Pulse 98 99 100 Oximetry General appearance: Present: no acute distress, well-nourished - Labs CBC & Chem 7: 05/05/21 15:08 Labs: Abnormal lab results 05/05/21 05/05/21 05/05/21 Range/Units 14:53 15:08 20:06 Sodium 136 L (137-145) mmol/L Creatinine 0.4 L (0.6-1.2) mg/dL Glucose 176 H (65-100) mg/dL POC Glucose 183 H 266 H (70-105) mg/dL Albumin 3.7 L (3.9-5) g/dL 05/05/21 05/06/21 05/06/21 Range/Units 22:17 06:13 07:43 Sodium (137-145) mmol/L Creatinine (0.6-1.2) mg/dL Glucose (65-100) mg/dL POC Glucose 329 H 142 H 166 H (70-105) mg/dL Albumin (3.9-5) g/dL Medications & Allergies - Medications Allergies/Adverse Reactions: Allergies latex Allergy (Verified 09/02/18 05:40) Rash nickel Allergy (Unverified 05/05/21 15:02) Unknown Home Medications: Home Medications Medication Instructions Recorded Confirmed Last Taken Type Ferrous Sulfate [Feosol 325 MG tab] 325 mg PO BID 30 Days #60 tablet 09/02/18 Unknown Rx Ibuprofen [Ibuprofen 800] 800 mg PO Q6H PRN 10 Days #30 09/02/18 Unknown Rx tablet MDD 3200mg NovoLOG Mix 70-30 Flexpen 15 units SQ BID 09/02/18 09/02/18 09/01/18 20:00 History oxyCODONE /ACETAMINOPHEN [Percocet 1 tab PO Q4HR PRN 14 Days #30 tab 09/02/18 Unknown Rx 5/325] valACYclovir [Valtrex] 1,000 mg PO DAILY 09/02/18 09/02/18 08/31/18 History Active Medications: Generic Name Dose Route Start Last Admin Trade Name Freq PRN Reason Stop Dose Admin Acetaminophen 650 mg 05/05/21 12:57 Acetaminophen 325 Mg Tab PO Q4H PRN Pain MILD(1-3)/Fever >100.5/COFFEY Dextrose 50 ml 05/05/21 15:00 Dextrose 50% In Water (25gm) 50 Ml Syringe IV Q30MIN PRN Hypoglycemia Protocol Ferrous Sulfate 325 mg 05/05/21 22:00 05/06/21 09:18 Ferrous Sulfate 325 Mg Tab PO 325 mg BID DARIEN Administration Insulin Human Lispro 0 unit 05/05/21 16:30 05/06/21 09:13 Insulin Lispro 100 Unit/Ml SUB-Q 3 unit ACHS DARIEN Administration Protocol
--- NOTE | 2021-05-06 14:17 | Consultation ---
History of Present Illness Consult date: 05/06/21 Requesting physician: ROLAND WEINSTEIN History of present illness: 25 y/o ISABEL 11/14/21 EGA 13 weeks Sent in with uncontrolled IDDM ?? 300 to 400 at home Patient is poor historian and noncompliant with diet and Insulin Reports was followed by another Endo but now they do not accept her or insurance States she is noncompliant at home with diet due to "kids and work and driving [employer] " States she was on ?? 24 Basaglar ( Long Acting ) in am and pm and ?? 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.), other (gastric paresis) Past Surgical History: no surgical history Family/Genetic History: diabetes, hypertension - Obstetrical History : 3 Medications and Allergies Allergies Allergy/AdvReac Type Severity Reaction Status Date / Time latex Allergy Rash Verified 09/02/18 05:40 nickel Allergy Unknown Unverified 05/05/21 15:02 Home Medications Medication Instructions Recorded Confirmed Last Taken Type Ferrous Sulfate [Feosol 325 MG tab] 325 mg PO BID 30 Days #60 tablet 09/02/18 Unknown Rx Ibuprofen [Ibuprofen 800] 800 mg PO Q6H PRN 10 Days #30 09/02/18 Unknown Rx tablet MDD 3200mg NovoLOG Mix 70-30 Flexpen 15 units SQ BID 09/02/18 09/02/18 09/01/18 20:00 History oxyCODONE /ACETAMINOPHEN [Percocet 1 tab PO Q4HR PRN 14 Days #30 tab 09/02/18 Unknown Rx 5/325] valACYclovir [Valtrex] 1,000 mg PO DAILY 09/02/18 09/02/18 08/31/18 History Active Meds: Active Medications Acetaminophen (Acetaminophen 325 Mg Tab) 650 mg PO Q4H PRN PRN Reason: Pain MILD(1-3)/Fever >100.5/COFFEY Dextrose (Dextrose 50% In Water (25gm) 50 Ml Syringe) 50 ml IV Q30MIN PRN; Protocol PRN Reason: Hypoglycemia Ferrous Sulfate (Ferrous Sulfate 325 Mg Tab) 325 mg PO BID DARIEN Last Admin: 05/06/21 09:18 Dose: 325 mg Documented by: Insulin Human Lispro (Insulin Lispro 100 Unit/Ml) 0 unit SUB-Q ACHS DARIEN; Protocol Last Admin: 05/06/21 13:10 Dose: 4 unit Documented by: - Vital Signs Vital signs: Vital Signs Temp Pulse Resp BP Pulse Ox 98.7 F 77 20 102/61 100 05/05/21 14:00 05/05/21 14:00 05/05/21 14:00 05/05/21 14:00 05/05/21 14:00 Temp Pulse Resp BP Pulse Ox 97.9 F 72 18 120/67 100 05/06/21 08:01 05/06/21 08:01 05/06/21 08:01 05/06/21 08:01 05/06/21 08:01 Results Result Diagrams: 05/05/21 15:08 Abnormal lab results 05/05/21 05/05/21 05/05/21 Range/Units 14:53 15:08 20:06 Sodium 136 L (137-145) mmol/L Creatinine 0.4 L (0.6-1.2) mg/dL Glucose 176 H (65-100) mg/dL POC Glucose 183 H 266 H (70-105) mg/dL Albumin 3.7 L (3.9-5) g/dL 05/05/21 05/06/21 05/06/21 Range/Units 22:17 06:13 07:43 Sodium (137-145) mmol/L Creatinine (0.6-1.2) mg/dL Glucose (65-100) mg/dL POC Glucose 329 H 142 H 166 H (70-105) mg/dL Albumin (3.9-5) g/dL 05/06/21 Range/Units 12:58 Sodium (137-145) mmol/L Creatinine (0.6-1.2) mg/dL Glucose (65-100) mg/dL POC Glucose 238 H (70-105) mg/dL Albumin (3.9-5) g/dL All other labs normal. Assessment and Plan Impression 1. Cervantes IUP at 13 weeks 2. Uncontrolled IDDM 3. Noncompliance 4. Prior C/S 1. BS's under controlled conditions in house improved 2. Would start on weight based split dose insulin increase dose as indicated 3. Please start Humulin N 26 units in am and Humalog 14 units at breakfast Humalog 10 units at dinner Humilin N 10 units at bedtime 4. Sliding scale Humalog Reg Insulin BS 140 to 160 give 4 units 161 to 180 - 6 units 181 to 200 - 8 units 201 to 220 - 10 units 221 to 240 - 12 units 241 ti 260 - 14 units 261 to 280 - 16 units 281 to 300 - 18 units > 300 - 20 units and call 5. Please obtain HbA1c and Fructosamine 6. Diabetic/diet teaching if patient will accept 7. Will consider calling [facility] for assistance with diabetic management at home - patient to call daily with Accuchecks 8. Accuchecks fastings and 2 Hour PP's and at 3 am
[2021-05-06] MEDS ORDERED: INSULIN LISPRO 100 UNIT/ML SUB-Q SCH ×2 (20:08→21:00)
[2021-05-06] MEDS ORDERED: DEXTROSE 50% IN WATER (25GM) 50 ML SYRINGE IV PRN (21:02)
--- NOTE | 2021-05-06 21:03 | Progress Note ---
Assessment and Plan - Patient Problems (1) HTN (hypertension) Status: Acute Qualifiers: Hypertension type: primary hypertension Qualified Code(s): I10 - Essential (primary) hypertension Plan to address problem: Monitor BP q shift, Pt currently normtensive. (2) Diabetes Status: Acute Plan to address problem: Consistent carbohydrate diet, accu check, insulin protocol, Lantus 5 mg nightly, sliding scale insulin therapy. History Interval history: 25 YO Female at 13 weeks gestation with DM, HTN. No reported nursing events. Patient resting comfortably in bed. Improved hyperglycemic control. Hospitalist Physical - Constitutional Vitals: Temp Pulse Resp BP Pulse Ox 98.1 F 82 18 113/67 100 05/06/21 15:50 05/06/21 15:50 05/06/21 15:50 05/06/21 15:50 05/06/21 15:50 General appearance: Present: no acute distress, well-nourished - EENT Eyes: Present: PERRL ENT: hearing intact - Neck Neck: Present: supple - Respiratory Respiratory: bilateral: CTA - Cardiovascular Rhythm: regular Heart Sounds: Present: S1 & S2 - Extremities Extremities: no ischemia Peripheral Pulses: within normal limits - Abdominal General gastrointestinal: soft, non-tender, non-distended - Integumentary Integumentary: Present: clear, dry - Psychiatric Psychiatric: cooperative - Neurologic Neurologic: CNII-XII intact Results - Labs CBC & Chem 7: 05/05/21 15:08 Labs: Laboratory Last Values Sodium 136 mmol/L (137-145) L 05/05/21 15:08 Potassium 4.0 mmol/L (3.6-5.0) 05/05/21 15:08 Chloride 103.1 mmol/L (98-107) 05/05/21 15:08 Carbon Dioxide 27 mmol/L (22-30) 05/05/21 15:08 Anion Gap 10 mmol/L 05/05/21 15:08 BUN 9 mg/dL (7-17) 05/05/21 15:08 Creatinine 0.4 mg/dL (0.6-1.2) L 05/05/21 15:08 Estimated GFR > 60 ml/min 05/05/21 15:08 BUN/Creatinine Ratio 23 % 05/05/21 15:08 Glucose 176 mg/dL (65-100) H 05/05/21 15:08 POC Glucose 156 mg/dL (70-105) H 05/06/21 20:13 Calcium 9.3 mg/dL (8.4-10.2) 05/05/21 15:08 Total Bilirubin 0.30 mg/dL (0.1-1.2) 05/05/21 15:08 AST 10 units/L (5-40) 05/05/21 15:08 ALT 9 units/L (7-56) 05/05/21 15:08 Alkaline Phosphatase 53 units/L (35-129) 05/05/21 15:08 Total Protein 6.7 g/dL (6.3-8.2) 05/05/21 15:08 Albumin 3.7 g/dL (3.9-5) L 05/05/21 15:08 Albumin/Globulin Ratio 1.2 % 05/05/21 15:08 Hernadez/IV: Voiding Method Toilet Active Medications - Current Medications Current Medications: Generic Name Dose Route Start Last Admin Trade Name Freq PRN Reason Stop Dose Admin Acetaminophen 650 mg 05/05/21 12:57 Acetaminophen 325 Mg Tab PO Q4H PRN Pain MILD(1-3)/Fever >100.5/COFFEY Dextrose 50 ml 05/05/21 15:00 Dextrose 50% In Water (25gm) 50 Ml Syringe IV Q30MIN PRN Hypoglycemia Protocol Ferrous Sulfate 325 mg 05/05/21 22:00 05/06/21 09:18 Ferrous Sulfate 325 Mg Tab PO 325 mg BID DARIEN Administration Insulin Glargine 5 units 05/06/21 22:00 Insulin Glargine 100 Units/Ml SUB-Q QHS DARIEN
[2021-05-06] MEDS ORDERED: INSULIN GLARGINE 100 UNITS/ML SUB-Q SCH (22:00)
[2021-05-07] MEDS ORDERED: INSULIN NPH, HUMAN 100 UNIT/1 ML SUB-Q SCH ×4 (06:00→22:00)
[2021-05-07] MEDS ORDERED: INSULIN LISPRO 100 UNIT/ML SUB-Q SCH ×4 (07:30→22:00)
[2021-05-07] MEDS ORDERED: INSULIN REGULAR, HUMAN 100 UNITS/1 ML SUB-Q SCH (10:00)
[2021-05-07] MEDS: FERROUS SULFATE 325 MG TAB PO SCH ×2 (10:39→22:04)
--- NOTE | 2021-05-07 10:39 | Progress Note ---
Subjective - Subjective Date of service: 05/07/21 Principal diagnosis: 13 wk iup , DM WITH POOR CONTROL Interval history: Appreciate IM and [facility] consults Insulin ordered as per [facility] note goal: improved compliance and control labs ordered continue conservative management, with improved glycemic control will d/c to home for outpatient management with [facility]. abortive precautions US for viability Stephanie Siddiqi MD Objective - Vital Signs Vital Signs: Vital Signs - 12hr 05/07/21 05/07/21 05/07/21 00:31 04:26 07:40 Temperature 98.7 F 98.1 F 98.6 F Pulse Rate 72 75 70 Respiratory 14 16 18 Rate Blood Pressure 104/61 111/68 109/68 O2 Sat by Pulse 100 100 98 Oximetry 05/07/21 08:15 Temperature Pulse Rate Respiratory Rate Blood Pressure O2 Sat by Pulse 100 Oximetry - Labs Labs: Abnormal Labs 05/05/21 05/05/21 05/05/21 14:53 15:08 20:06 Sodium 136 L Creatinine 0.4 L Glucose 176 H POC Glucose 183 H 266 H Hemoglobin A1c Albumin 3.7 L 05/05/21 05/06/21 05/06/21 22:17 06:13 07:43 Sodium Creatinine Glucose POC Glucose 329 H 142 H 166 H Hemoglobin A1c Albumin 05/06/21 05/06/21 05/06/21 12:58 14:16 16:54 Sodium Creatinine Glucose POC Glucose 238 H 147 H 256 H Hemoglobin A1c Albumin 05/06/21 05/06/21 05/07/21 20:13 20:36 05:43 Sodium Creatinine Glucose POC Glucose 156 H 175 H Hemoglobin A1c 11.6 H Albumin 05/07/21 10:20 Sodium Creatinine Glucose POC Glucose 206 H Hemoglobin A1c Albumin Laboratory Results - last 24 hr 05/06/21 05/06/21 05/06/21 12:58 14:16 16:54 POC Glucose 238 H 147 H 256 H Hemoglobin A1c 05/06/21 05/06/21 05/07/21 20:13 20:36 05:43 POC Glucose 156 H 175 H Hemoglobin A1c 11.6 H 05/07/21 10:20 POC Glucose 206 H Hemoglobin A1c
--- NOTE | 2021-05-07 13:45 | Ultrasound Report ---
ULTRASOUND OBSTETRIC INDICATION / CLINICAL INFORMATION: viability. Clinical Gestational Age (GA) in weeks, days: 12, 5 TECHNIQUE: Transabdominal. COMPARISON: None available. FINDINGS: GESTATIONAL SAC: Well-defined oval shape and intrauterine in location. YOLK SAC: Not seen EMBRYO/FETUS: No significant abnormality. - Paisley-Rump Length = 5.78 cm = 12, 2 weeks, days - Heart Rate, beats per minute (if present) = 154 ADNEXA: No significant abnormality. FREE FLUID: None. ADDITIONAL FINDINGS: None. IMPRESSION: 1. Single, living intrauterine with estimated sonographic age of 12, 2 weeks, days. Signer Name: Davide Irvin MD Signed: 05/07/2021 1:40 PM Workstation Name: [id number]
[2021-05-07] MEDS: INSULIN LISPRO 100 UNIT/ML SUB-Q SCH (17:44)
[2021-05-08] MEDS: INSULIN REGULAR, HUMAN 100 UNITS/1 ML SUB-Q SCH ×2 (04:19→10:30)
[2021-05-08] MEDS ORDERED: INSULIN LISPRO 100 UNIT/ML SUB-Q SCH (07:30)
[2021-05-08] MEDS ORDERED: INSULIN NPH, HUMAN 100 UNIT/1 ML SUB-Q SCH (07:30)
[2021-05-08] MEDS: FERROUS SULFATE 325 MG TAB PO SCH (10:29)
[2021-05-08 16:25] VITALS: BP 105/65
[2021-05-08] MEDS: INSULIN LISPRO 100 UNIT/ML SUB-Q SCH (17:18)
--- NOTE | 2021-05-08 20:34 | Progress Note ---
Assessment and Plan - Patient Problems (1) HTN (hypertension) Status: Acute Qualifiers: Hypertension type: primary hypertension Qualified Code(s): I10 - Essential (primary) hypertension Plan to address problem: Monitor BP q shift, Pt currently normtensive. (2) Diabetes Status: Acute Plan to address problem: Consistent carbohydrate diet, accu check, insulin protocol, Lantus 5 mg nightly, sliding scale insulin therapy. History Interval history: 25 YO Female at 13 weeks gestation with DM, HTN. No reported nursing events. Patient resting comfortably in bed. Improved hyperglycemic control. Hospitalist Physical - Constitutional Vitals: Temp Pulse Resp BP Pulse Ox 98.2 F 84 18 105/65 99 05/08/21 15:30 05/08/21 15:30 05/08/21 15:30 05/08/21 15:30 05/08/21 15:30 General appearance: Present: no acute distress - EENT Eyes: Present: PERRL, EOM intact ENT: hearing intact - Neck Neck: Present: supple - Respiratory Respiratory: bilateral: CTA - Cardiovascular Rhythm: regular Heart Sounds: Present: S1 & S2 - Abdominal General gastrointestinal: soft, non-tender - Integumentary Integumentary: Present: clear, dry - Psychiatric Psychiatric: appropriate mood/affect, cooperative Results - Labs CBC & Chem 7: 05/05/21 15:08 Labs: Laboratory Last Values Sodium 136 mmol/L (137-145) L 05/05/21 15:08 Potassium 4.0 mmol/L (3.6-5.0) 05/05/21 15:08 Chloride 103.1 mmol/L (98-107) 05/05/21 15:08 Carbon Dioxide 27 mmol/L (22-30) 05/05/21 15:08 Anion Gap 10 mmol/L 05/05/21 15:08 BUN 9 mg/dL (7-17) 05/05/21 15:08 Creatinine 0.4 mg/dL (0.6-1.2) L 05/05/21 15:08 Estimated GFR > 60 ml/min 05/05/21 15:08 BUN/Creatinine Ratio 23 % 05/05/21 15:08 Glucose 176 mg/dL (65-100) H 05/05/21 15:08 POC Glucose 167 mg/dL (70-105) H 05/08/21 16:45 Hemoglobin A1c 11.6 % (4-6) H 05/06/21 20:36 Calcium 9.3 mg/dL (8.4-10.2) 05/05/21 15:08 Total Bilirubin 0.30 mg/dL (0.1-1.2) 05/05/21 15:08 AST 10 units/L (5-40) 05/05/21 15:08 ALT 9 units/L (7-56) 05/05/21 15:08 Alkaline Phosphatase 53 units/L (35-129) 05/05/21 15:08 Total Protein 6.7 g/dL (6.3-8.2) 05/05/21 15:08 Albumin 3.7 g/dL (3.9-5) L 05/05/21 15:08 Albumin/Globulin Ratio 1.2 % 05/05/21 15:08 Hernadez/IV: Voiding Method Toilet
--- NOTE | 2021-05-08 20:37 | Progress Note ---
Assessment and Plan - Patient Problems (1) HTN (hypertension) Status: Acute Qualifiers: Hypertension type: primary hypertension Qualified Code(s): I10 - Essential (primary) hypertension Plan to address problem: Monitor BP q shift, Pt currently normtensive. (2) Diabetes Status: Acute Plan to address problem: Consistent carbohydrate diet, accu check, insulin protocol, Lantus 5 mg nightly, sliding scale insulin therapy. History Interval history: 25 YO Female at 13 weeks gestation with DM, HTN. No reported nursing events. Patient resting comfortably in bed. Improved hyperglycemic control. Hospitalist Physical - Constitutional Vitals: Temp Pulse Resp BP Pulse Ox 98.2 F 84 18 105/65 99 05/08/21 15:30 05/08/21 15:30 05/08/21 15:30 05/08/21 15:30 05/08/21 15:30 General appearance: Present: no acute distress, well-nourished - EENT Eyes: Present: PERRL ENT: hearing intact - Neck Neck: Present: supple - Respiratory Respiratory effort: normal Respiratory: bilateral: CTA - Cardiovascular Rhythm: regular Heart Sounds: Present: S1 & S2 - Abdominal General gastrointestinal: soft, non-tender, non-distended - Integumentary Integumentary: Present: clear, dry - Psychiatric Psychiatric: cooperative - Neurologic Neurologic: CNII-XII intact Results - Labs CBC & Chem 7: 05/05/21 15:08 Labs: Laboratory Last Values Sodium 136 mmol/L (137-145) L 05/05/21 15:08 Potassium 4.0 mmol/L (3.6-5.0) 05/05/21 15:08 Chloride 103.1 mmol/L (98-107) 05/05/21 15:08 Carbon Dioxide 27 mmol/L (22-30) 05/05/21 15:08 Anion Gap 10 mmol/L 05/05/21 15:08 BUN 9 mg/dL (7-17) 05/05/21 15:08 Creatinine 0.4 mg/dL (0.6-1.2) L 05/05/21 15:08 Estimated GFR > 60 ml/min 05/05/21 15:08 BUN/Creatinine Ratio 23 % 05/05/21 15:08 Glucose 176 mg/dL (65-100) H 05/05/21 15:08 POC Glucose 167 mg/dL (70-105) H 05/08/21 16:45 Hemoglobin A1c 11.6 % (4-6) H 05/06/21 20:36 Calcium 9.3 mg/dL (8.4-10.2) 05/05/21 15:08 Total Bilirubin 0.30 mg/dL (0.1-1.2) 05/05/21 15:08 AST 10 units/L (5-40) 05/05/21 15:08 ALT 9 units/L (7-56) 05/05/21 15:08 Alkaline Phosphatase 53 units/L (35-129) 05/05/21 15:08 Total Protein 6.7 g/dL (6.3-8.2) 05/05/21 15:08 Albumin 3.7 g/dL (3.9-5) L 05/05/21 15:08 Albumin/Globulin Ratio 1.2 % 05/05/21 15:08 Hernadez/IV: Voiding Method Toilet
== END 2021-05-08 18:35 | disposition home or self-care (01) | DRG 781 ==
LOC: 3A 12:25 → UNDOADMIN 12:25 → OB 13:08
DX: O24.311 Unspecified pre-existing diabetes mellitus in pregnancy, first trimester (principal); O16.1 Unspecified maternal hypertension, first trimester; E11.9 Type 2 diabetes mellitus without complications; Z3A.13 13 weeks gestation of pregnancy; Z91.14 Patient's other noncompliance with medication regimen; O34.219 Maternal care for unspecified type scar from previous cesarean delivery
CPT/HCPCS: 36415; 76801; 80053; 82962; 83036; G0378; J1815

== ENCOUNTER 2021-05-24 20:35 | Inpatient (IN) | payer MEDICAID ==
--- NOTE | 2021-05-25 00:46 | Ultrasound Report ---
Obstetrical ultrasound limited INDICATION: Pelvic pain in FINDINGS: There is a single intrauterine fetus without detectable cardiac activity. The fetus i s in the transverse position. IMPRESSION: No heart tones identified. Signer Name: Rashad Rosas MD Signed: 05/25/2021 12:41 AM Workstation Name: [id number]
[2021-05-25] MEDS ORDERED: MINERAL OIL 30 ML ORAL LIQD PO PRN (01:34)
[2021-05-25] MEDS ORDERED: LOPERAMIDE 2 MG CAP PO PRN (01:34)
[2021-05-25] MEDS ORDERED: ACETAMINOPHEN 325 MG TAB PO PRN ×2 (01:34→23:31)
[2021-05-25] MEDS ORDERED: TERBUTALINE 1 MG/1 ML INJ SUB-Q PRN (01:34)
[2021-05-25] MEDS ORDERED: LIDOCAINE (2%) 20 MG/1 ML VIAL 20 ML MDV INFILTRATI ONE (01:34)
[2021-05-25] MEDS ORDERED: METHYLERGONOVINE MALEATE 0.2 MG/ML VIAL IM PRN (01:34)
[2021-05-25] MEDS ORDERED: OXYTOCIN 10 UNIT/1 ML INJ IM PRN (01:34)
[2021-05-25] MEDS ORDERED: BUTORPHANOL 2 MG/1 ML INJ IV PRN (01:34)
[2021-05-25] MEDS ORDERED: CARBOPROST TROMETHAMINE 250 MCG/1 ML INJ IM PRN (01:34)
[2021-05-25] MEDS ORDERED: fentaNYL 100 MCG/2 ML INJ IV PRN (01:34)
[2021-05-25] MEDS ORDERED: miSOPROStol 200 MCG TAB PR PRN (01:34)
[2021-05-25] MEDS ORDERED: ePHEDrine SULFATE 50 MG/1 ML INJ IV PRN (01:34)
--- NOTE | 2021-05-25 01:42 | Event Note ---
Date: 05/25/21 Initial orders put in for patient per MD request. MD is managing patient's care.
[2021-05-25] MEDS ORDERED: LACTATED RINGERS 1,000 ML IV SCH (01:45)
[2021-05-25] MEDS ORDERED: OXYTOCIN DRIP 30 UNITS/500 ML BAG IV SCH (02:00)
[2021-05-25] MEDS: miSOPROStol 200 MCG TAB PO SCH ×2 (02:53→10:34)
[2021-05-25 03:44] LABS: Hemoglobin 13.4 gm/dl (10.1-14.3); Mean Corpuscular HGB Conc 34 % (30-34); Mean Corpuscular Volume 93 fl (79-97); Platelet Count 223 K/mm3 (140-440); Red Blood Count 4.19 M/mm3 (3.65-5.03); Red Cell Distribution Width 13.5 % (13.2-15.2)
[2021-05-25] MEDS ORDERED: INSULIN NPH/REGULAR 70/30 INJ SUB-Q SCH (08:00)
--- NOTE | 2021-05-25 08:50 | History and Physical Report ---
History of Present Illness Date of examination: 05/25/21 Date of admission: 05/25/21 01:34 Chief complaint: IUFD IDDM History of present illness: IUFD @15 weeks IDDM Past History Past Medical History: diabetes - Obstetrical History : 3 Medications and Allergies Allergies Allergy/AdvReac Type Severity Reaction Status Date / Time latex Allergy Mild Rash Verified 05/24/21 21:26 nickel Allergy Mild Hives Verified 05/24/21 21:26 Home Medications Medication Instructions Recorded Confirmed Last Taken Type Ferrous Sulfate [Feosol 325 MG tab] 325 mg PO BID 30 Days #60 tablet 09/02/18 Unknown Rx Ibuprofen [Ibuprofen 800] 800 mg PO Q6H PRN 10 Days #30 09/02/18 Unknown Rx tablet MDD 3200mg NovoLOG Mix 70-30 Flexpen 15 units SQ BID 09/02/18 09/02/18 09/01/18 20:00 History oxyCODONE /ACETAMINOPHEN [Percocet 1 tab PO Q4HR PRN 14 Days #30 tab 09/02/18 Unknown Rx 5/325] valACYclovir [Valtrex] 1,000 mg PO DAILY 09/02/18 09/02/18 08/31/18 History Insulin NPH, Human [NovoLIN N] 10 unit SQ HS 30 Days #10 ml 05/08/21 Unknown Rx Insulin NPH, Human [NovoLIN N] 26 unit SQ Q8AM 30 Days #10 ml 05/08/21 Unknown Rx Insulin Regular, Human [HumuLIN R] 10 unit SQ QPM 30 Days #100 units 05/08/21 Unknown Rx Insulin Regular, Human [HumuLIN R] 14 unit SUB-Q Q8AM 30 Days #100 05/08/21 Unknown Rx units Active Meds: Active Medications Acetaminophen (Acetaminophen 325 Mg Tab) 650 mg PO Q4H PRN PRN Reason: Pain, Mild (1-3) Butorphanol Tartrate (Butorphanol 2 Mg/1 Ml Inj) 1 mg IV Q2H PRN PRN Reason: Pain, Moderate(4-6) LABOR PAIN Carboprost Tromethamine (Carboprost Tromethamine 250 Mcg/1 Ml Inj) 250 mcg IM ONCE PRN PRN Reason: Uterine Bleeding Ephedrine Sulfate (Ephedrine Sulfate 50 Mg/1 Ml Inj) 10 mg IV Q2M PRN PRN Reason: Hypotension Fentanyl (Fentanyl 100 Mcg/2 Ml Inj) 100 mcg IV Q2H PRN PRN Reason: Pain,Severe (7-10) LABOR PAIN Lactated Ringer's (Lactated Ringers) 1,000 mls @ 125 mls/hr IV DIRECT DARIEN Oxytocin/Sodium Chloride (Pitocin/Ns 30 Unit/500ml) 30 units in 500 mls @ 40 mls/hr IV TITR DARIEN; Protocol Insulin Human Isoph/Insulin Regular (Insulin Nph/Regular 70/30 Inj) 5 unit SUB- Q ONCE@0800 [facility] Stop: 05/25/21 11:00 Last Admin: 05/25/21 08:17 Dose: 5 unit Documented by: Insulin Human Regular (Insulin Regular, Human 100 Units/1 Ml) 0 units SUB-Q Q4H DARIEN; Protocol Loperamide HCl (Loperamide 2 Mg Cap) 2 mg PO ONCE PRN PRN Reason: give with Hemabate Methylergonovine Maleate (Methylergonovine Maleate 0.2 Mg/Ml Vial) 0.2 mg IM ONCE PRN PRN Reason: Uterine Bleeding Mineral Oil (Mineral Oil 30 Ml Oral Liqd) 30 ml PO QHS PRN PRN Reason: Constipation Oxytocin (Oxytocin 10 Unit/1 Ml Inj) 10 unit IM ONCE PRN PRN Reason: Uterine Bleeding Terbutaline Sulfate (Terbutaline 1 Mg/1 Ml Inj) 0.25 mg SUB-Q ONCE PRN PRN Reason: Hyperstimulation/Hypertonicity - Vital Signs Vital signs: Vital Signs Pulse BP Pulse Ox 94 H 122/75 100 05/24/21 21:01 05/24/21 21:01 05/24/21 21:01 Temp Pulse Resp BP Pulse Ox 98.1 F 60 18 109/70 100 05/25/21 07:55 05/25/21 08:45 05/25/21 07:55 05/25/21 08:38 05/25/21 08:45 - Physical Exam Breasts: Positive: deferred Cardiovascular: Regular rate Lungs: Positive: Clear to auscultation Abdomen: Positive: normal appearance, normal bowel sounds Genitourinary (Female): Positive: normal external genitalia Vagina: Positive: normal moisture Deep Tendon Reflex Grade: Normal +2 Results Result Diagrams: 05/24/21 22:00 Abnormal lab results 05/25/21 05/25/21 Range/Units 03:23 07:50 POC Glucose 237 H 238 H (70-105) mg/dL All other labs normal. Assessment and Plan cytotoc insulin per protocol Stephanie Jiménez
--- NOTE | 2021-05-25 08:51 | Progress Note ---
Subjective - Subjective Date of service: 05/25/21 Interval history: IUFD @15 weeks IDDM plan for cytotec 400mcg PO x 1 dose Stephanie Siddiqi MD Objective - Vital Signs Vital Signs: Vital Signs - 12hr 05/24/21 05/24/21 05/24/21 21:01 21:06 21:08 Temperature 98.8 F Pulse Rate 94 H 95 H Respiratory Rate Blood Pressure 122/75 O2 Sat by Pulse 100 100 Oximetry O2 Sat by Pulse 100 Oximetry [ Bilateral] 05/24/21 05/24/21 05/24/21 21:11 21:16 21:21 Temperature Pulse Rate 100 H 95 H 93 H Respiratory Rate Blood Pressure O2 Sat by Pulse 100 100 100 Oximetry O2 Sat by Pulse Oximetry [ Bilateral] 05/24/21 05/24/21 05/24/21 21:26 21:31 21:36 Temperature Pulse Rate 86 87 92 H Respiratory Rate Blood Pressure O2 Sat by Pulse 100 100 100 Oximetry O2 Sat by Pulse Oximetry [ Bilateral] 05/24/21 05/24/21 05/24/21 21:38 21:41 21:46 Temperature Pulse Rate 82 89 94 H Respiratory Rate Blood Pressure 123/64 O2 Sat by Pulse 100 100 Oximetry O2 Sat by Pulse Oximetry [ Bilateral] 05/24/21 05/24/21 05/24/21 21:51 21:56 22:01 Temperature Pulse Rate 93 H 87 83 Respiratory Rate Blood Pressure O2 Sat by Pulse 100 100 100 Oximetry O2 Sat by Pulse Oximetry [ Bilateral] 05/24/21 05/24/21 05/24/21 22:06 22:08 22:11 Temperature Pulse Rate 85 81 86 Respiratory Rate Blood Pressure 121/73 O2 Sat by Pulse 100 100 Oximetry O2 Sat by Pulse Oximetry [ Bilateral] 05/24/21 05/24/21 05/24/21 22:16 22:21 22:26 Temperature Pulse Rate 91 H 98 H 99 H Respiratory Rate Blood Pressure O2 Sat by Pulse 100 100 100 Oximetry O2 Sat by Pulse Oximetry [ Bilateral] 05/24/21 05/24/21 05/24/21 22:31 22:36 22:38 Temperature Pulse Rate 85 86 88 Respiratory Rate Blood Pressure 133/88 O2 Sat by Pulse 100 100 Oximetry O2 Sat by Pulse Oximetry [ Bilateral] 05/24/21 05/24/21 05/24/21 22:41 22:46 22:51 Temperature Pulse Rate 82 87 84 Respiratory Rate Blood Pressure O2 Sat by Pulse 100 100 100 Oximetry O2 Sat by Pulse Oximetry [ Bilateral] 05/24/21 05/24/21 05/24/21 22:56 23:01 23:06 Temperature Pulse Rate 86 82 75 Respiratory Rate Blood Pressure O2 Sat by Pulse 100 100 100 Oximetry O2 Sat by Pulse Oximetry [ Bilateral] 05/24/21 05/24/21 05/24/21 23:08 23:11 23:16 Temperature Pulse Rate 86 75 91 H Respiratory Rate Blood Pressure 124/89 O2 Sat by Pulse 100 100 Oximetry O2 Sat by Pulse Oximetry [ Bilateral] 05/24/21 05/24/21 05/24/21 23:21 23:26 23:31 Temperature Pulse Rate 79 80 82 Respiratory Rate Blood Pressure O2 Sat by Pulse 100 100 100 Oximetry O2 Sat by Pulse Oximetry [ Bilateral] 05/24/21 05/24/21 05/24/21 23:36 23:39 23:41 Temperature Pulse Rate 81 74 88 Respiratory Rate Blood Pressure 116/73 O2 Sat by Pulse 100 100 Oximetry O2 Sat by Pulse Oximetry [ Bilateral] 05/24/21 05/24/21 05/24/21 23:46 23:51 23:56 Temperature Pulse Rate 81 82 82 Respiratory Rate Blood Pressure O2 Sat by Pulse 100 100 100 Oximetry O2 Sat by Pulse Oximetry [ Bilateral] 05/25/21 05/25/21 05/25/21 00:01 00:06 00:08 Temperature Pulse Rate 79 81 77 Respiratory Rate Blood Pressure 122/82 O2 Sat by Pulse 100 100 Oximetry O2 Sat by Pulse Oximetry [ Bilateral] 05/25/21 05/25/21 05/25/21 00:11 00:15 00:21 Temperature Pulse Rate 84 91 H 84 Respiratory Rate Blood Pressure O2 Sat by Pulse 100 100 100 Oximetry O2 Sat by Pulse Oximetry [ Bilateral] 05/25/21 05/25/21 05/25/21 00:26 00:31 00:36 Temperature Pulse Rate 84 89 85 Respiratory Rate Blood Pressure O2 Sat by Pulse 100 100 100 Oximetry O2 Sat by Pulse Oximetry [ Bilateral] 05/25/21 05/25/21 05/25/21 00:38 00:41 00:46 Temperature Pulse Rate 77 75 83 Respiratory Rate Blood Pressure 125/82 O2 Sat by Pulse 100 100 Oximetry O2 Sat by Pulse Oximetry [ Bilateral] 05/25/21 05/25/21 05/25/21 00:51 00:56 01:01 Temperature Pulse Rate 86 84 90 Respiratory Rate Blood Pressure O2 Sat by Pulse 100 100 100 Oximetry O2 Sat by Pulse Oximetry [ Bilateral] 05/25/21 05/25/21 05/25/21 01:06 01:08 01:11 Temperature Pulse Rate 75 82 88 Respiratory Rate Blood Pressure 121/86 O2 Sat by Pulse 100 100 Oximetry O2 Sat by Pulse Oximetry [ Bilateral] 05/25/21 05/25/21 05/25/21 01:16 01:21 01:26 Temperature Pulse Rate 82 87 91 H Respiratory Rate Blood Pressure O2 Sat by Pulse 100 100 100 Oximetry O2 Sat by Pulse Oximetry [ Bilateral] 05/25/21 05/25/21 05/25/21 01:31 01:36 01:38 Temperature Pulse Rate 85 85 81 Respiratory Rate Blood Pressure 128/79 O2 Sat by Pulse 100 100 Oximetry O2 Sat by Pulse Oximetry [ Bilateral] 05/25/21 05/25/21 05/25/21 01:41 01:46 01:51 Temperature Pulse Rate 89 90 90 Respiratory Rate Blood Pressure O2 Sat by Pulse 100 100 100 Oximetry O2 Sat by Pulse Oximetry [ Bilateral] 05/25/21 05/25/21 05/25/21 01:56 02:01 02:06 Temperature Pulse Rate 103 H 83 79 Respiratory Rate Blood Pressure O2 Sat by Pulse 100 100 100 Oximetry O2 Sat by Pulse Oximetry [ Bilateral] 05/25/21 05/25/21 05/25/21 02:08 02:11 02:16 Temperature Pulse Rate 78 82 82 Respiratory Rate Blood Pressure 111/66 O2 Sat by Pulse 100 100 Oximetry O2 Sat by Pulse Oximetry [ Bilateral] 05/25/21 05/25/21 05/25/21 02:21 02:26 02:31 Temperature Pulse Rate 81 85 78 Respiratory Rate Blood Pressure O2 Sat by Pulse 100 100 100 Oximetry O2 Sat by Pulse Oximetry [ Bilateral] 05/25/21 05/25/21 05/25/21 02:36 02:38 02:41 Temperature Pulse Rate 76 70 75 Respiratory Rate Blood Pressure 107/61 O2 Sat by Pulse 100 100 Oximetry O2 Sat by Pulse Oximetry [ Bilateral] 10/12/1005/25/21 05/25/21 02:46 02:51 02:55 Temperature Pulse Rate 73 84 62 Respiratory Rate Blood Pressure O2 Sat by Pulse 100 100 82 L Oximetry O2 Sat by Pulse Oximetry [ Bilateral] 05/25/21 05/25/21 05/25/21 02:56 03:01 03:06 Temperature Pulse Rate 70 79 83 Respiratory Rate Blood Pressure O2 Sat by Pulse 85 99 99 Oximetry O2 Sat by Pulse Oximetry [ Bilateral] 05/25/21 05/25/21 05/25/21 03:09 03:11 03:16 Temperature Pulse Rate 80 85 79 Respiratory Rate Blood Pressure 114/80 O2 Sat by Pulse 99 99 Oximetry O2 Sat by Pulse Oximetry [ Bilateral] 05/25/21 05/25/21 05/25/21 03:21 03:26 03:31 Temperature Pulse Rate 86 76 79 Respiratory Rate Blood Pressure O2 Sat by Pulse 100 98 99 Oximetry O2 Sat by Pulse Oximetry [ Bilateral] 05/25/21 05/25/21 05/25/21 03:36 03:38 03:41 Temperature Pulse Rate 81 76 78 Respiratory Rate Blood Pressure 116/69 O2 Sat by Pulse 99 100 Oximetry O2 Sat by Pulse Oximetry [ Bilateral] 05/25/21 05/25/21 05/25/21 03:46 03:51 03:56 Temperature Pulse Rate 80 80 83 Respiratory Rate Blood Pressure O2 Sat by Pulse 99 99 100 Oximetry O2 Sat by Pulse Oximetry [ Bilateral] 05/25/21 05/25/21 05/25/21 04:01 04:06 04:08 Temperature Pulse Rate 85 85 82 Respiratory Rate Blood Pressure 111/60 O2 Sat by Pulse 99 99 Oximetry O2 Sat by Pulse Oximetry [ Bilateral] 05/25/21 05/25/21 05/25/21 04:11 04:15 04:16 Temperature Pulse Rate 84 74 82 Respiratory Rate Blood Pressure O2 Sat by Pulse 99 93 96 Oximetry O2 Sat by Pulse Oximetry [ Bilateral] 05/25/21 05/25/21 05/25/21 04:21 04:26 04:31 Temperature Pulse Rate 78 77 85 Respiratory Rate Blood Pressure O2 Sat by Pulse 100 99 100 Oximetry O2 Sat by Pulse Oximetry [ Bilateral] 05/25/21 05/25/21 05/25/21 04:36 04:38 04:41 Temperature Pulse Rate 83 76 85 Respiratory Rate Blood Pressure 109/64 O2 Sat by Pulse 100 100 Oximetry O2 Sat by Pulse Oximetry [ Bilateral] 05/25/21 05/25/21 05/25/21 04:46 04:51 04:56 Temperature Pulse Rate 81 81 80 Respiratory Rate Blood Pressure O2 Sat by Pulse 100 100 100 Oximetry O2 Sat by Pulse Oximetry [ Bilateral] 05/25/21 05/25/21 05/25/21 05:01 05:06 05:08 Temperature Pulse Rate 85 76 71 Respiratory Rate Blood Pressure 130/73 O2 Sat by Pulse 100 100 Oximetry O2 Sat by Pulse Oximetry [ Bilateral] 05/25/21 05/25/21 05/25/21 05:11 05:16 05:21 Temperature Pulse Rate 77 69 72 Respiratory Rate Blood Pressure O2 Sat by Pulse 100 99 99 Oximetry O2 Sat by Pulse Oximetry [ Bilateral] 05/25/21 05/25/21 05/25/21 05:26 05:31 05:36 Temperature Pulse Rate 72 74 77 Respiratory Rate Blood Pressure O2 Sat by Pulse 99 99 99 Oximetry O2 Sat by Pulse Oximetry [ Bilateral] 05/25/21 05/25/21 05/25/21 05:38 05:41 05:45 Temperature Pulse Rate 76 79 81 Respiratory Rate Blood Pressure 109/61 O2 Sat by Pulse 99 99 Oximetry O2 Sat by Pulse Oximetry [ Bilateral] 05/25/21 05/25/21 05/25/21 05:50 05:56 06:01 Temperature Pulse Rate 81 83 79 Respiratory Rate Blood Pressure O2 Sat by Pulse 99 99 99 Oximetry O2 Sat by Pulse Oximetry [ Bilateral] 05/25/21 05/25/21 05/25/21 06:06 06:08 06:11 Temperature Pulse Rate 79 81 77 Respiratory Rate Blood Pressure 110/64 O2 Sat by Pulse 99 99 Oximetry O2 Sat by Pulse Oximetry [ Bilateral] 05/25/21 05/25/21 05/25/21 06:16 06:21 06:25 Temperature Pulse Rate 76 78 77 Respiratory Rate Blood Pressure O2 Sat by Pulse 99 98 97 Oximetry O2 Sat by Pulse Oximetry [ Bilateral] 05/25/21 05/25/21 05/25/21 06:31 06:35 06:38 Temperature Pulse Rate 76 79 76 Respiratory Rate Blood Pressure 107/60 O2 Sat by Pulse 100 100 Oximetry O2 Sat by Pulse Oximetry [ Bilateral] 05/25/21 05/25/21 05/25/21 06:40 06:45 06:50 Temperature Pulse Rate 78 77 79 Respiratory Rate Blood Pressure O2 Sat by Pulse 100 100 100 Oximetry O2 Sat by Pulse Oximetry [ Bilateral] 05/25/21 05/25/21 05/25/21 06:55 07:00 07:05 Temperature Pulse Rate 75 75 73 Respiratory Rate Blood Pressure O2 Sat by Pulse 99 99 99 Oximetry O2 Sat by Pulse Oximetry [ Bilateral] 05/25/21 05/25/21 05/25/21 07:09 07:10 07:15 Temperature Pulse Rate 66 79 74 Respiratory Rate Blood Pressure 121/57 O2 Sat by Pulse 100 100 Oximetry O2 Sat by Pulse Oximetry [ Bilateral] 05/25/21 05/25/21 05/25/21 07:20 07:25 07:30 Temperature Pulse Rate 75 72 76 Respiratory Rate Blood Pressure O2 Sat by Pulse 100 100 100 Oximetry O2 Sat by Pulse Oximetry [ Bilateral] 05/25/21 05/25/21 05/25/21 07:35 07:38 07:40 Temperature Pulse Rate 75 74 84 Respiratory Rate Blood Pressure 123/68 O2 Sat by Pulse 100 100 Oximetry O2 Sat by Pulse Oximetry [ Bilateral] 05/25/21 05/25/21 05/25/21 07:45 07:50 07:55 Temperature 98.1 F Pulse Rate 75 67 86 Respiratory 18 Rate Blood Pressure O2 Sat by Pulse 100 100 100 Oximetry O2 Sat by Pulse Oximetry [ Bilateral] 05/25/21 05/25/21 05/25/21 08:00 08:05 08:09 Temperature Pulse Rate 88 69 65 Respiratory Rate Blood Pressure 121/61 O2 Sat by Pulse 100 100 Oximetry O2 Sat by Pulse Oximetry [ Bilateral] 05/25/21 05/25/21 05/25/21 08:10 08:15 08:20 Temperature Pulse Rate 66 66 74 Respiratory Rate Blood Pressure O2 Sat by Pulse 100 100 100 Oximetry O2 Sat by Pulse Oximetry [ Bilateral] 05/25/21 05/25/21 05/25/21 08:25 08:30 08:35 Temperature Pulse Rate 77 77 77 Respiratory Rate Blood Pressure O2 Sat by Pulse 100 100 100 Oximetry O2 Sat by Pulse Oximetry [ Bilateral] 05/25/21 05/25/21 05/25/21 08:38 08:40 08:45 Temperature Pulse Rate 65 67 60 Respiratory Rate Blood Pressure 109/70 O2 Sat by Pulse 100 100 Oximetry O2 Sat by Pulse Oximetry [ Bilateral] - Labs Labs: Abnormal Labs 05/25/21 05/25/21 03:23 07:50 POC Glucose 237 H 238 H Laboratory Results - last 24 hr 05/24/21 05/24/21 05/24/21 22:00 22:00 22:00 WBC 6.5 RBC 4.19 Hgb 13.4 Hct 39.0 MCV 93 MCH 32 MCHC 34 RDW 13.5 Plt Count 223 POC Glucose Syphilis IgG Antibody Nonreactive Blood Type O POSITIVE Antibody Screen Negative 05/25/21 05/25/21 03:23 07:50 WBC RBC Hgb Hct MCV MCH MCHC RDW Plt Count POC Glucose 237 H 238 H Syphilis IgG Antibody Blood Type Antibody Screen
[2021-05-25] MEDS: INSULIN REGULAR, HUMAN 100 UNITS/1 ML SUB-Q SCH ×4 (10:02→19:42)
[2021-05-25] MEDS ORDERED: miSOPROStol 200 MCG TAB PO ONE ×2 (12:27→19:00)
[2021-05-25] MEDS ORDERED: miSOPROStol 200 MCG TAB ONE (21:30)
--- NOTE | 2021-05-25 21:39 | Event Note ---
Date: 05/25/21 I was called for delivery of IUFD Placenta in place no bleeding plan for [id number] Cervix 2cm/80% hemodynamically stable Stephanie Siddiqi MD
[2021-05-25] MEDS ORDERED: diphenhydrAMINE 25 MG CAP PO PRN (23:31)
[2021-05-25] MEDS ORDERED: HYDROcodone/ACETAMINOPHEN 5-325 MG TAB PO PRN (23:31)
[2021-05-25] MEDS ORDERED: WITCH HAZEL/ GLYCERIN PAD TP PRN (23:31)
[2021-05-25] MEDS ORDERED: PROMETHAZINE 25 MG RECT SUPP PR PRN (23:31)
[2021-05-25] MEDS ORDERED: LANOLIN/ZINC/DIMETHICONE (LANSINOH) 7 GM TP PRN (23:31)
[2021-05-25] MEDS ORDERED: MAGNESIUM HYDROXIDE (MOM) ORAL LIQD UDC PO PRN (23:31)
[2021-05-25] MEDS ORDERED: PROMETHAZINE 25 MG TAB PO PRN (23:31)
[2021-05-25] MEDS ORDERED: ONDANSETRON 4 MG/2 ML INJ IV PRN (23:31)
[2021-05-25] MEDS ORDERED: oxyCODONE /ACETAMINOPHEN 5-325MG TAB PO PRN (23:31)
--- NOTE | 2021-05-25 23:33 | Procedure Note ---
OB Delivery Note - Delivery Date of Delivery: 05/25/21 Surgeon: WILLIAM BARNETT Estimated blood loss: 300cc - Vaginal Delivery presentation: unknown Intrapartum events: other(please specify) (15 week IUFD) Route of delivery: Delivery placenta: spontaneous (inspection revealed compete placenta) Delivery comments: IUFD placenta delivered spontaneously inspection of the uterus revealed no obvious retained POC, no bleeding, firm fundus will obtain US in AM if bleeding stable to Stephanie Barnett MD
[2021-05-26] MEDS: IBUPROFEN 600 MG TAB PO SCH ×5 (06:15→23:14)
[2021-05-26] MEDS: INSULIN REGULAR, HUMAN 100 UNITS/1 ML SUB-Q SCH ×4 (06:30→18:49)
--- NOTE | 2021-05-26 09:52 | Progress Note ---
Assessment and Plan A: with 15wk IUFD IDDM with elevated fsbs p: Continue routine pp care Offer emot support IDDM mtg by MD Awaiting PP H&H D/C home when cleared by MD Subjective - Subjective Date of service: 05/26/21 Principal diagnosis: with IUFD Patient reports: appetite normal, voiding normally, pain well controlled, ambulating normally : Objective - Vital Signs Latest vital signs: Vital Signs Temp Pulse Resp BP BP Pulse Ox Pulse Ox 05/26/21 08:00 98 05/26/21 07:34 98.1 F 72 18 108/64 97 05/26/21 06:12 98 05/26/21 04:45 98.3 F 66 20 110/65 99 05/26/21 03:40 99 05/26/21 01:15 100 05/26/21 01:10 98.3 F 64 18 115/72 100 05/26/21 00:51 69 100 05/26/21 00:46 78 100 05/26/21 00:44 76 110/69 05/26/21 00:41 74 100 05/26/21 00:36 72 100 05/26/21 00:31 68 100 05/26/21 00:29 70 114/80 05/26/21 00:26 72 100 05/26/21 00:21 89 100 05/26/21 00:16 68 100 05/26/21 00:14 69 112/72 05/26/21 00:11 73 100 05/26/21 00:06 66 100 05/26/21 00:01 64 100 05/25/21 23:59 62 119/79 05/25/21 23:56 63 100 05/25/21 23:51 59 L 100 05/25/21 23:46 71 100 05/25/21 23:44 68 112/77 05/25/21 23:41 69 100 05/25/21 23:36 63 100 05/25/21 23:32 69 83 L 05/25/21 23:31 62 100 05/25/21 23:29 69 120/76 05/25/21 23:26 66 100 05/25/21 23:21 71 100 05/25/21 23:16 62 100 05/25/21 23:14 62 112/76 05/25/21 23:11 63 100 05/25/21 23:06 72 100 05/25/21 23:01 72 99 05/25/21 22:59 68 102/58 05/25/21 22:56 72 99 05/25/21 22:51 73 99 05/25/21 22:46 71 99 05/25/21 22:44 68 100/57 05/25/21 22:41 70 99 05/25/21 22:36 67 99 05/25/21 22:31 67 100 05/25/21 22:29 65 117/62 05/25/21 22:26 66 100 05/25/21 22:21 73 100 05/25/21 22:16 71 100 05/25/21 22:14 68 118/73 05/25/21 22:11 75 94 05/25/21 22:06 72 100 05/25/21 22:01 70 100 05/25/21 21:59 63 115/75 05/25/21 21:56 83 100 05/25/21 21:51 72 100 05/25/21 21:46 73 100 05/25/21 21:44 73 120/77 05/25/21 21:41 66 100 05/25/21 21:39 68 114/71 05/25/21 21:36 72 100 05/25/21 21:31 69 100 05/25/21 21:29 63 121/70 05/25/21 21:26 72 100 05/25/21 21:21 78 100 05/25/21 21:16 62 100 05/25/21 21:14 63 127/80 05/25/21 21:11 60 100 05/25/21 21:06 64 100 05/25/21 21:01 63 100 05/25/21 20:59 70 127/71 05/25/21 20:56 67 100 05/25/21 20:51 75 100 05/25/21 20:46 77 100 05/25/21 20:42 64 93 05/25/21 20:41 67 100 05/25/21 20:37 72 94 05/25/21 20:36 72 98 05/25/21 20:31 72 100 05/25/21 20:26 72 100 05/25/21 20:25 72 134/79 05/25/21 20:21 74 96 05/25/21 20:16 73 99 05/25/21 20:11 71 100 05/25/21 20:06 70 100 05/25/21 20:01 78 100 05/25/21 19:56 70 100 05/25/21 19:55 98.6 F 76 18 121/84 05/25/21 19:52 75 92 05/25/21 19:51 81 100 05/25/21 19:47 100 05/25/21 19:46 75 100 05/25/21 19:41 71 100 05/25/21 19:36 79 100 05/25/21 19:31 76 100 05/25/21 19:26 74 100 05/25/21 19:24 78 121/84 05/25/21 19:21 74 100 05/25/21 19:16 73 100 05/25/21 19:11 76 100 05/25/21 19:06 75 100 05/25/21 19:01 83 100 05/25/21 18:56 79 100 05/25/21 18:52 70 93 05/25/21 18:51 86 100 05/25/21 18:46 78 100 05/25/21 18:41 77 100 05/25/21 18:36 77 100 05/25/21 18:31 72 100 05/25/21 18:26 77 100 05/25/21 18:25 74 117/71 05/25/21 18:21 69 100 05/25/21 18:16 72 100 05/25/21 18:11 76 100 05/25/21 18:06 80 100 05/25/21 18:01 87 100 05/25/21 17:56 78 100 05/25/21 17:51 75 100 05/25/21 17:46 81 100 05/25/21 17:41 82 100 05/25/21 17:36 86 100 05/25/21 17:31 81 100 05/25/21 17:26 74 100 05/25/21 17:25 78 118/76 05/25/21 17:21 79 100 05/25/21 17:16 81 100 05/25/21 17:11 68 100 05/25/21 17:06 77 100 05/25/21 17:01 78 100 05/25/21 16:56 84 100 05/25/21 16:51 88 100 05/25/21 16:46 78 100 10/04/21 16:41 87 100 05/25/21 16:36 87 100 05/25/21 16:31 76 100 05/25/21 16:26 82 100 05/25/21 16:24 78 120/71 05/25/21 16:21 77 100 05/25/21 16:16 79 100 05/25/21 16:11 82 100 05/25/21 16:06 81 100 05/25/21 16:01 76 100 05/25/21 16:00 98.4 F 20 05/25/21 15:56 80 100 05/25/21 15:51 68 100 05/25/21 15:46 76 100 05/25/21 15:41 73 100 05/25/21 15:36 82 100 05/25/21 15:31 75 100 05/25/21 15:26 81 100 05/25/21 15:24 75 116/61 05/25/21 15:21 79 100 05/25/21 15:19 178 H 85 05/25/21 15:16 74 100 05/25/21 15:11 78 100 05/25/21 15:06 77 100 05/25/21 15:01 80 100 05/25/21 14:56 79 100 05/25/21 14:51 82 100 05/25/21 14:46 72 100 05/25/21 14:41 77 100 05/25/21 14:36 72 100 05/25/21 14:31 70 100 05/25/21 14:26 72 100 05/25/21 14:24 64 112/61 05/25/21 14:21 68 100 05/25/21 14:16 74 100 05/25/21 14:14 65 120/58 05/25/21 14:11 78 100 05/25/21 14:00 87 100 05/25/21 13:55 81 100 05/25/21 13:50 77 100 05/25/21 13:45 79 100 05/25/21 13:40 79 100 05/25/21 13:35 73 100 05/25/21 13:30 76 100 05/25/21 13:25 80 100 05/25/21 13:20 80 100 05/25/21 13:15 76 100 05/25/21 13:10 76 100 05/25/21 13:05 74 100 05/25/21 13:00 70 100 05/25/21 12:55 70 100 05/25/21 12:50 72 100 05/25/21 12:45 71 100 05/25/21 12:40 69 100 05/25/21 12:35 82 100 05/25/21 12:30 83 100 05/25/21 12:25 80 100 05/25/21 12:24 67 120/75 05/25/21 12:20 73 100 05/25/21 12:15 83 100 05/25/21 12:10 82 100 05/25/21 12:05 98.2 F 76 18 100 05/25/21 12:00 89 100 05/25/21 11:55 77 100 05/25/21 11:50 81 100 05/25/21 11:45 77 100 05/25/21 11:40 70 100 05/25/21 11:35 76 100 05/25/21 11:30 83 100 05/25/21 11:25 79 119/83 100 05/25/21 11:20 75 100 05/25/21 11:15 78 100 05/25/21 11:10 78 100 05/25/21 11:05 81 100 05/25/21 11:00 67 100 05/25/21 10:55 71 100 05/25/21 10:50 70 100 05/25/21 10:45 79 100 05/25/21 10:40 80 100 05/25/21 10:35 75 100 05/25/21 10:30 76 100 05/25/21 10:25 74 100 05/25/21 10:23 73 118/59 05/25/21 10:20 74 100 05/25/21 10:15 67 100 05/25/21 10:10 74 100 05/25/21 10:05 86 100 05/25/21 10:00 86 100 05/25/21 09:55 75 100 05/25/21 09:50 65 100 Intake and Output 05/25/21 05/26/21 05/26/21 22:59 06:59 14:59 Intake Total 1000 120 Output Total 600 Balance 1000 -480 Intake: Oral 120 Intake, Free Water 1000 Output: Urine 600 Void 600 Other: Total, Intake Amount 120 Total, Output Amount 600 # Voids Void 3 1 # Bowel Movements 0 - Exam Breasts: Present: normal Abdomen: Present: normal appearance, soft, normal bowel sounds Vulva: both: normal Uterus: Present: normal, firm, fundal height below umbilicus Extremities: Present: normal - Labs Labs: Abnormal lab results 05/25/21 05/25/21 05/25/21 Range/Units 09:56 12:03 15:12 POC Glucose 185 H 151 H 173 H (70-105) mg/dL 05/25/21 05/26/21 Range/Units 19:18 06:24 POC Glucose 174 H 255 H (70-105) mg/dL
[2021-05-26 11:17] LABS: Hematocrit 36.6 % (30.3-42.9); Hemoglobin 12.5 gm/dl (10.1-14.3)
[2021-05-26] MEDS ORDERED: miSOPROStol 200 MCG TAB PO ONE (21:38)
[2021-05-27] MEDS: INSULIN REGULAR, HUMAN 100 UNITS/1 ML SUB-Q SCH ×2 (06:39→11:48)
[2021-05-27] MEDS: IBUPROFEN 600 MG TAB PO SCH ×2 (06:39→12:47)
--- NOTE | 2021-05-27 12:37 | Progress Note ---
Assessment and Plan A: PP Day #2 Type I Diabetes (Poor Control) s/p IUFD delivery P: Follow Routine Orders Continue Insulin per MD Management December D/C Home today per Dr. Siddiqi See Endocrinology GUILLERMO RTO in 2 Weeks Subjective - Subjective Date of service: 05/27/21 Principal diagnosis: with IUFD Patient reports: appetite normal, voiding normally, pain well controlled, flatus, ambulating normally : Objective - Vital Signs Latest vital signs: Vital Signs Temp Pulse Resp BP BP Pulse Ox Pulse Ox 05/27/21 08:43 98 05/27/21 07:50 97.9 F 65 18 103/63 100 05/27/21 06:29 98 05/27/21 03:20 98 05/27/21 01:50 98 05/26/21 23:27 98.1 F 68 18 115/82 100 05/26/21 23:10 100 05/26/21 21:40 98 05/26/21 20:05 98.1 F 70 18 113/66 100 100 05/26/21 16:27 97.9 F 83 18 112/69 99 Intake and Output 05/26/21 05/27/21 05/27/21 22:59 06:59 14:59 Intake Total 360 120 240 Balance 360 120 240 Intake: Oral 360 120 240 Other: Total, Intake Amount 240 120 120 # Voids Void 1 - Exam Breasts: Present: normal Cardiovascular: Present: Regular rate Lungs: Present: Clear to auscultation, Normal air movement Abdomen: Present: normal appearance, soft, normal bowel sounds Uterus: Present: normal, firm, fundal height below umbilicus Extremities: Present: normal - Labs Labs: Abnormal lab results 05/26/21 05/26/21 05/27/21 Range/Units 15:05 18:36 06:34 POC Glucose 201 H 199 H 187 H (70-105) mg/dL 05/27/21 Range/Units 11:29 POC Glucose 200 H (70-105) mg/dL
--- NOTE | 2021-05-27 12:39 | Discharge Summary ---
Providers - Providers Date of Admission: 05/25/21 01:34 Date of discharge: 05/27/21 Attending physician: ROLAND WEINSTEIN MD 05/26/21 12:52 psychiatry consult [Consult to Mental Health] [CONS] Routine Reason For Exam: [place] 21 05/26/21 13:53 Consult to Case Management [CONS] Routine Services Needed at Discharge: Other Notified:: Yes Phone number called:: [phone] Was contact made?: Yes Time called:: 13:54 Comment:: resources for support and home information Primary care physician: ROLAND WEINSTEIN MD Hospitalization Reason for admission: induction of labor Delivery: Episiotomy: none Laceration: none Other procedures: none complications: other (uncontrolled IDDM) Discharge diagnosis: intrapartum demise Condition at discharge: Good Disposition: 01 HOME / SELF CARE / HOMELESS Plan - Provider Discharge Summary Activity: routine, no sex for 6 weeks, no heavy lifting 4 weeks, no strenuous exercise Diet: routine Instructions: routine Additional instructions: [] Smoking cessation referral if applicable(refer to patient education folder for contact #) [] Refer to [facility] Booklet Call your doctor immediately for: * Fever > 100.5 * Heavy vaginal bleeding ( >1 pad per hour) * Severe persistent headache * Shortness of breath * Reddened, hot, painful area to leg or breast * Drainage or odor from incision. * Keep incision clean and dry at all times and follow doctor's instructions regarding bathing/showering - Follow up plan Follow up: ROLAND WEINSTEIN MD [Primary Care Provider] - 14 Days Forms: [facility] Discharge Summary
--- NOTE | 2021-05-27 13:11 | Consultation ---
History of Present Illness - Reason for Consult Consult date: 05/27/21 Reason for consult: [place] 21 - Chief Complaint Chief complaint: IUFD IDDM - History of Present Psychiatric Illness Denisha Pitts is a 25 year old female with history of Bipolar, and Anxiety who was consulted for [place] score of 21. She reports that she stopped taking psychotropic medications through out her . The patient reports not be ing depressed but states she feels anxious rates as a 3/10 on a scale of 1-10 and 10 being the worst. She reports recent stressor such as getting ready for her baby's , stating " I have a lot to do." She patient is receptive to restarting medications. The patient denies any current suicidal /homicidal ideation and denies hallucination. PAST PSYCHIATRIC HISTORY: Diagnoses: Bipolar, Anxiety Suicide attempts or Self-harm behavior: Denies Prior psychiatric hospitalizations: Yes Substance Abuse history: Denies Previous psychiatric medications tried: Buspar, Abilify, Sertraline Outpatient treatment:Yes PAST MEDICAL HISTORY: None reported or document Family Psychiatric History: None reported or documented SOCIAL HISTORY Marital Status:Single Living Arrangements: Lives with mother Employment Status:unemployed Access to guns/weapons: Denies Education:Some college History of Abuse:Unknown Legal History: Denies REVIEW OF SYSTEMS Constitutional: Negative for weight loss ENT: Negative for stridor Respiratory: Negative for cough or hemoptysis All other systems reviewed and are negative MENTAL STATUS EXAMINATION General Appearance and Behavior: Age appropriate, good hygiene, wearing appropriate clothes. Cooperation: cooperative Psychomotor Behavior: Psychomotor normal Mood:OK Affect and affective range: Incongruent with stated mood Thought Process: Goal directed Thought Content: Not Suicidal Speech: Normal volume, Regular rate and rhythm, Suicidal Ideation: Denies Homicidal Ideation: Denies Hallucinations: Denies Delusions: None elicited Impulse Control: Unimpaired Insight and Judgment: Limited, good judgment Memory: normal Attention: Distractible Orientation: alert and oriented Assessment and Plan (1) Anxiety disorder, unspecified- F41.9 Current Visit: Yes Status: Acute Sertraline 25mg po daily Vistaril 25mg po BID The patient to comply with previously prescribed medications Risks, benefits and alternatives of medications discussed with the patient, questions answered and consent obtained from patient. PSYCHOTHERAPY: Supportive psychotherapy provided MEDICAL: Per primary team DELIRIUM PRECAUTIONS: Please re-orient patient frequently, keep lights on during the day, and minimize benzodiazepines and opiates as these medications could worsen patient's confusion. [employer] DEPLOYMENT: Defer to primary DISPOSITION: Do not recommend acute inpatient psychiatric hospitalization at this time. The membership assistant will provide patient with psychiatric out patient resources. FOLLOW-UP: Will sign off. Post hospital care: primary care provider, psychiatric provider Case staffed with Dr. Moran Medications and Allergies Allergies Allergy/AdvReac Type Severity Reaction Status Date / Time latex Allergy Mild Rash Verified 05/24/21 21:26 nickel Allergy Mild Hives Verified 05/24/21 21:26 Home Medications Medication Instructions Recorded Confirmed Last Taken Type Admelog 10 units SUB-Q QID 05/25/21 05/25/21 05/24/21 History Basaglar Kwikpen U-100 15 units SUB-Q HS 05/25/21 05/25/21 05/23/21 History Basaglar Kwikpen U-100 15 units SUB-Q QAM 05/25/21 05/25/21 05/24/21 08:00 History Vitamin D3 50,000UNIT CAP 1 tab PO QWEEK 05/25/21 05/25/21 Unknown History Sertraline [Zoloft] 25 mg PO QDAY 30 Days #30 tab 05/27/21 Unknown Rx hydrOXYzine PAMOATE [Vistaril] 25 mg PO BID 30 Days #60 capsule 05/27/21 Unknown Rx Active Meds: Active Medications Acetaminophen (Acetaminophen 325 Mg Tab) 650 mg PO Q4H PRN PRN Reason: Pain, Mild (1-3) Hydrocodone Bitart/Acetaminophen (Hydrocodone/Acetaminophen 5-325 Mg Tab) 2 each PO Q6H PRN PRN Reason: Pain, Moderate (4-6) Bisacodyl (Bisacodyl 10 Mg Rect Supp) 10 mg MT BID PRN PRN Reason: Constipation Butorphanol Tartrate (Butorphanol 2 Mg/1 Ml Inj) 1 mg IV Q2H PRN PRN Reason: Pain, Moderate(4-6) LABOR PAIN Carboprost Tromethamine (Carboprost Tromethamine 250 Mcg/1 Ml Inj) 250 mcg IM ONCE PRN PRN Reason: Uterine Bleeding Diphenhydramine HCl (Diphenhydramine 25 Mg Cap) 25 mg PO Q6H PRN PRN Reason: Itching Ephedrine Sulfate (Ephedrine Sulfate 50 Mg/1 Ml Inj) 10 mg IV Q2M PRN PRN Reason: Hypotension Fentanyl (Fentanyl 100 Mcg/2 Ml Inj) 100 mcg IV Q2H PRN PRN Reason: Pain,Severe (7-10) LABOR PAIN Lactated Ringer's (Lactated Ringers) 1,000 mls @ 125 mls/hr IV DIRECT DARIEN Oxytocin/Sodium Chloride (Pitocin/Ns 30 Unit/500ml) 30 units in 500 mls @ 40 mls/hr IV TITR DARIEN; Protocol Ibuprofen (Ibuprofen 600 Mg Tab) 600 mg PO Q6HR [facility] Last Admin: 05/27/21 06:39 Dose: 600 mg Documented by: Insulin Human Regular (Insulin Regular, Human 100 Units/1 Ml) 0 units SUB-Q Q4H [facility]; Protocol Last Admin: 05/27/21 11:48 Dose: 2 units Documented by: Loperamide HCl (Loperamide 2 Mg Cap) 2 mg PO ONCE PRN PRN Reason: give with Hemabate Magnesium Hydroxide (Magnesium Hydroxide (Mom) Oral Liqd Udc) 30 ml PO HS PRN PRN Reason: Constipation Methylergonovine Maleate (Methylergonovine Maleate 0.2 Mg/Ml Vial) 0.2 mg IM ONCE PRN PRN Reason: Uterine Bleeding Multi-Ingredient Ointment (Lanolin/Zinc/Dimethicone (Lansinoh) 7 Gm) 1 applic TP PRN PRN PRN Reason: Sore Nipples Ondansetron HCl (Ondansetron 4 Mg/2 Ml Inj) 4 mg IV Q8H PRN PRN Reason: Nausea And Vomiting Oxycodone/Acetaminophen (Oxycodone /Acetaminophen 5-325mg Tab) 1 tab PO Q6H PRN PRN Reason: Pain, Moderate (4-6) Promethazine HCl (Promethazine 25 Mg Rect Supp) 25 mg MT Q6H PRN PRN Reason: Nausea And Vomiting Promethazine HCl (Promethazine 25 Mg Tab) 25 mg PO Q6H PRN PRN Reason: Nausea And Vomiting Terbutaline Sulfate (Terbutaline 1 Mg/1 Ml Inj) 0.25 mg SUB-Q ONCE PRN PRN Reason: Hyperstimulation/Hypertonicity Witch Sudha/Glycerin (Witch Sudha/ Glycerin Pad) 1 each TP PRN PRN PRN Reason: Hemorrhoid/cleansing/soothing Mental Status Exam - Vital signs Last Vital Signs Temp 98.0 F 05/27/21 12:15 Pulse 79 05/27/21 12:15 Resp 18 05/27/21 12:15 BP 123/72 05/27/21 12:15 Pulse Ox 99 05/27/21 12:15 Results Result Diagrams: 05/26/21 10:56 Abnormal lab results 05/26/21 05/26/21 05/27/21 Range/Units 15:05 18:36 06:34 POC Glucose 201 H 199 H 187 H (70-105) mg/dL 05/27/21 Range/Units 11:29 POC Glucose 200 H (70-105) mg/dL All other labs normal.
[2021-05-27 16:34] VITALS: BP 123/76
== END 2021-05-27 16:10 | disposition home or self-care (01) | DRG 779 ==
LOC: TRG 20:35 → UNDOADMIN 20:37 → LD 20:37 → OB 05-26 01:11
PROC: 10E0XZZ Delivery of Products of Conception, External Approach (ICD-10-PCS; principal; 2021-05-25)
DX: O02.1 Missed abortion (principal); Z20.822 Contact with and (suspected) exposure to COVID-19; Z91.040 Latex allergy status; Z91.048 Other nonmedicinal substance allergy status; F41.9 Anxiety disorder, unspecified; F31.9 Bipolar disorder, unspecified; E10.9 Type 1 diabetes mellitus without complications
CPT/HCPCS: 36415; 76815; 82962; 85014; 85018; 85027; 86592; 86850; 86900; 86901; G0378; J1815; U0003